=== PATIENT | female | born 1940 | race Caucasian/White ===

== ENCOUNTER 2017-02-13 16:11 | Inpatient (IN) | payer OTHER ==
[2017-02-13] MEDS ORDERED: ASPIRIN 81 MG CHEWABLE TAB PO ONE (17:13)
--- NOTE | 2017-02-13 17:20 | EDPHY ---
H & P Stated Complaint: sob x 5 days/denies cp but has extensive hx Source: Patient Exam Limitations: No limitations - Personal History Current Tetanus/Diphtheria Vaccine: Unsure - Medical/Surgical History Hx Asthma: No Hx Chronic Respiratory Disease: No Hx Diabetes: No Hx Cardiac Disease: Yes Hx Renal Disease: No Hx Cirrhosis: No Hx Alcoholism: No Hx HIV/AIDS: No Hx Splenectomy or Spleen Trauma: No Other PMH: 6 or more cardiac stents/hypertension, hyperlipidemia, hypothyroid - Family History Significant Family History: Heart disease - Social History Smoking Status: Never smoked Alcohol Use: Rarely Drug Use: None <Jessica Vieyra - Last Filed: 02/13/17 19:08> <Madyson Larry - Last Filed: 02/14/17 23:03> Time Seen by Provider: 02/13/17 16:50 HPI/ROS: HPI: 76-year-old female presents to emergency department with chief concern shortness of breath, left arm pain. 1st noted shortness of breath 3 days ago while walking up stairs while at the conference for [employer] at [facility]. Several days ago was walking on a treadmill and noted very mild in her left arm pain that resolved when she slow down. [place] short of breath at lunch today with her friends, and had to slow down while walking afterwards. No fever, chills, myalgias, URI symptoms, chest pain, abdominal pain, nausea, vomiting, diaphoresis. Has a history of CAD with 6 stents, last intervention approximately 4 years ago in [place]. She has never experienced chest pain with her blockages, only shortness of breath an inner left arm pain. Spent 2 days in her car 2 months ago while driving from [place] to [place]. [place] in [place] is Dr. Karlos Arredondo. Past medical history includes hyperlipidemia, hypertension, hypothyroid. Unknown family history for DVT, no personal history. No calf pain. Never smoker. No history of asthma. ROS:10 point review of systems is negative other than as stated in HPI (Jessica Vieyra) - Social History Additional Social History: (Jessica Vieyra) - Physical Exam Exam: Vital signs stable, reviewed by me General: Awake, alert, calm, cooperative. No acute distress. Head: Normalocephalic. Atraumatic. EENT: PERRLA. EOMI. No pallor or injection. Anicteric. No nystagmus. No injection. TMs intact bilaterally with normal landmarks. No rhinnorhea, nasal passages clear. Oropharynx without redness, exudates, or lesions. Tonsils 2+ bilaterally, no exudates. Neck: Supple, nontender. No lymphadenopathy. Full range of motion. No meningismus. No carotid bruit. Respiratory: Breathing unlabored. Breath sounds equal bilaterally and clear to auscultation. No adventitious sounds. CV: Chest nontender, atraumatic. Heart rate regular. No murmur, distal pulses 2+ bilaterally. Brisk cap refill all extremities. GI: Abdomen soft, nontender. Bowel sounds normoactive and positive x4 quadrants. No pulsatile mass. Neuro: Alert. Oriented x 3. Speech clear. Nonfocal cranial nerves throughout. Sensation intact all extremities. Skin: Skin warm, dry, intact. No rashes, abrasions, or lacerations. Skin turgor normal. Extremities: Full range of motion in all 4 extremities. Strength 5+ all extremities. (Jessica Vieyra) Constitutional: Initial Vital Signs Temperature (C) 36.4 C 02/13/17 16:25 Heart Rate 95 02/13/17 16:25 Respiratory Rate 18 02/13/17 16:25 Blood Pressure 176/80 H 02/13/17 16:25 O2 Sat (%) 96 02/13/17 16:25 O2 Delivery Mode Room Air Allergies/Adverse Reactions: No Known Allergies Allergy (Unverified 02/13/17 16:22) Home Medications: Medication Instructions Recorded Aspirin [Aspirin 81mg (*)] 81 mg PO HS 02/13/17 B12/Levomefolate Calcium/B-6 1 each PO DAILY 02/13/17 [Foltx Tablet] Clopidogrel Bisulfate [Plavix (*)] 75 mg PO DAILY 02/13/17 LORazepam [Ativan (*)] 1 mg PO HS PRN 02/13/17 Levothyroxine [Synthroid 100 mcg 100 mcg PO DAILY 02/13/17 (*)] Losartan Potassium [Cozaar] 100 mg PO HS 02/13/17 Meclizine HCl [Meclizine HCl 12.5 25 mg PO DAILY PRN 02/13/17 mg (*)] Niacin ER [Niaspan 1000 mg (*)] 2,000 mg PO HS 02/13/17 Nitroglycerin [Nitrostat 0.4 mg 0.4 mg SL AD PRN 02/13/17 (*)] Simvastatin [Zocor] 20 mg PO HS 02/13/17 Vit C/Dl-E AC/Lut/Copper/Znox 1 each PO BID 02/13/17 [Preservision Softgel] Medical Decision Making <Jessica Vieyra - Last Filed: 02/13/17 19:08> Consult/Admit Bed Type: Dr Leung Katey <Madyson Larry - Last Filed: 02/14/17 23:03> - Diagnostics Imaging Results: Imaging Impressions Myocardial Perfusion Scan Nuc Med 02/14/17 09:03 Impression: 1. Normal left ventricular ejection fraction of 80 %. 2. No focal wall motion abnormalities. 3. Small focal area of decreased uptake on stress imaging involving the distal septal wall near the left ventricular apex that could represent small focal area of ischemia. No additional abnormality seen. Dr. العراقي was paged in order to communicate these results as requested at 1224 hours. ED Course/Re-evaluation: 1715: 76-year-old female presents to ED with chief concern shortness of breath , transient left inner arm pain. She has a known cardiac history with 6 stents. Last intervention approximately 4 years ago. She has never had chest pain- her ischemic pain presents as shortness of breath and left inner arm pain. She has been short of breath intermittently x3 days. She experienced left inner arm discomfort when she was on a treadmill last week at home, which resolved when she slowed down. On arrival to ED vitals are stable. EKG, labs, chest x- ray all ordered and pending. Patient has no discomfort presently. She is given a 324 mg chewable aspirin. 1800: EKG shows a sinus rhythm, rate 66. No evidence of ischemia. Chest x- ray shows mild airway disease, minimal left basilar atelectasis. No evidence of pneumonia or effusion. Labs still pending. 1908: Troponin 0.08. D-dimer less than 0.27. Jessica Pearce MD of Cardiology consult. Awaiting hospitalist consult. Ordered 0.4 mg sublingual nitro now. Care of this patient transferred to my colleague Dr. Madyson Larry (Jessica Vieyra ) The patient wasevaluatedand managed by themallevel provider. Idiscussed the patient's presentation and course with thephysicianassistantor nurse practitionerand agree with theevaluation. My co-signature indicates that I have reviewed this chart and I agree with the findings and plan of care as documented. I am the secondary supervisingphysician. I discussed the patient presentation with Dr Federico Leung and he accepted admission to the hospital; PCU. Cardiology also aware. (Madyson Larry) Differential Diagnosis: Differential diagnosis includes but is not limited to CAD, URI, asthma, PE, spontaneous pneumothorax (Jessica Vieyra) - Data Points Laboratory Results: Laboratory Results 02/14/17 03:48 02/14/17 03:48 Medications Given: Discontinued Medications Aspirin (Aspirin) 324 mg PO EDNOW ONE Stop: 02/13/17 17:14 Last Admin: 02/13/17 17:31 Dose: 324 mg Aspirin Buffered (Aspirin Ec) 325 mg PO ONCALL ONE Stop: 02/14/17 14:21 Last Admin: 02/14/17 16:11 Dose: Not Given Clopidogrel Bisulfate (Plavix) 75 mg PO DAILY ALBERT Stop: 08/13/17 08:59 Last Admin: 02/14/17 09:42 Dose: 75 mg Diazepam (Valium) 5 mg PO ONCALL ONE Stop: 02/14/17 14:21 Last Admin: 02/14/17 16:11 Dose: Not Given Diphenhydramine HCl (Benadryl) 25 mg PO ONCALL ONE Stop: 02/14/17 14:21 Last Admin: 02/14/17 16:11 Dose: Not Given Famotidine (Pepcid) 20 mg PO ONCALL ONE Stop: 02/14/17 14:21 Last Admin: 02/14/17 16:11 Dose: Not Given Nitroglycerin (Nitrostat) 0.4 mg SL EDNOW ONE Stop: 02/13/17 19:06 Last Admin: 02/13/17 19:20 Dose: 0.4 mg Departure <Jessica Vieyra - Last Filed: 02/13/17 19:08> <Madyson Larry - Last Filed: 02/14/17 23:03> - Departure Disposition: [facility] Clinical Impression: Elevated troponin Dyspnea Qualifiers: Dyspnea type: unspecified Qualified Code(s): R06.00 - Dyspnea, unspecified Condition: Good
--- NOTE | 2017-02-13 17:26 | CPEKG ---
Heart Rate: 66 RR Interval: 909 P-R Interval: 168 QRSD Interval: 78 QT Interval: 416 QTC Interval: 436 P And[place]: 57 QRS Andover: 24 T Wave Andover: 57 EKG Severity - NORMAL ECG - EKG Impression: SINUS RHYTHM Electronically Signed By: Naila Bryant 13-Feb-2017 21:44:10
[2017-02-13 18:20] LABS: % IMMATURE GRANULYOCYTES 0.2 % (0.0-1.1); ABSOLUTE IMMATURE GRANULOCYTES 0.01 10^3/uL (0.00-0.10); ADD DIFF? NO; ADD MORPH? NO; ADD SCAN? NO; ATYPICAL LYMPHOCYTE FLAG 10 (0-99); FRAGMENT RBC FLAG 0 (0-99); HEMATOCRIT 40.4 % (38.0-47.0); HEMOGLOBIN 13.7 g/dL (12.6-16.3); LEFT SHIFT FLG 0 (0-99); LIPEMIA HEMOLYSIS FLAG 90 (0-99); MEAN CELL HEMOGLOBIN 32.2 pg (27.9-34.1); MEAN CELL HEMOGLOBIN CONCENTR. 33.9 g/dL (32.4-36.7); MEAN CELL VOLUME 95.1 fL (81.5-99.8); MEAN PLATELET VOLUME 10.8 fL (8.7-11.7); PLATELET CLUMPS FLAG 40 (0-99); PLATELET COUNT 183 10^3/uL (150-400); RED BLOOD CELL COUNT 4.25 10^6/uL (4.18-5.33); RED CELL DISTRIBUTION WIDTH 14.6 % (11.5-15.2)
[2017-02-13 18:35] LABS: ANION GAP 10 mEq/L (8-16); CALCIUM 9.8 mg/dL (8.5-10.4); CARBON DIOXIDE 21 mEq/l (22-31); CHLORIDE 103 mEq/L (97-110); CREATININE 0.8 mg/dL (0.6-1.0); GLOMERULAR FILTRATION RATE > 60; GLUCOSE 98 mg/dL (70-100); POTASSIUM 4.3 mEq/L (3.5-5.2); SODIUM 134 mEq/L (134-144)
[2017-02-13] MEDS ORDERED: NITROGLYCERIN 0.4 MG BTL SL ONE (19:05)
[2017-02-13] MEDS ORDERED: ONDANSETRON DISINTEGRATING 4 MG TAB PO PRN (19:55)
[2017-02-13] MEDS ORDERED: ONDANSETRON 4 MG/2 ML VIAL IVP PRN (19:55)
[2017-02-13] MEDS ORDERED: ACETAMINOPHEN 325 MG TAB PO PRN (19:55)
[2017-02-13] MEDS ORDERED: NITROGLYCERIN 0.4 MG BTL SL PRN (19:57)
[2017-02-13] MEDS ORDERED: MECLIZINE HCL 12.5 MG TAB PO PRN (21:55)
--- NOTE | 2017-02-13 22:00 | PDGENHP ---
History and Physical - Chief Complaint Acute shortness of breath - History of Present Illness PCP: Dr. Angella Ambrocio Primary advertising agency manager: Dr. Arredondo HPI: 76-year-old female presents with acute shortness of breath characterized as getting winded easily with associated pain located in her left arm, onset of symptoms approximately 1 and half weeks ago and duration intermittent thereafter. Patient reports that her shortness of breath and left arm pain symptoms are exacerbated by ambulation and exercise on a treadmill as well as ambulating upstairs. There alleviated with rest. She has otherwise been adherent to all of her home medications. She denies overt left-sided chest pain , but does note that she has never experienced chest pain as her anginal equivalent. Her anginal equivalent has always been shortness of breath and left arm pain. She otherwise denies any fevers chills lower extremity edema or cough. History Information - Allergies/Home Medication List Allergies/Adverse Reactions: No Known Allergies Allergy (Unverified 02/13/17 16:22) Home Medications: Aspirin [Aspirin 81mg (*)] 81 mg PO HS 02/13/17 [Last Taken 02/12/17] B12/Levomefolate Calcium/B-6 [Foltx Tablet] 1 each PO DAILY 02/13/17 [Last Taken 02/13/17] Clopidogrel Bisulfate [Plavix (*)] 75 mg PO DAILY 02/13/17 [Last Taken 02/13/17] LORazepam [Ativan (*)] 1 mg PO HS PRN 02/13/17 [Last Taken Unknown] Levothyroxine [Synthroid 100 mcg (*)] 100 mcg PO DAILY 02/13/17 [Last Taken ] Losartan Potassium [Cozaar] 100 mg PO HS 02/13/17 [Last Taken 02/12/17] Meclizine HCl [Meclizine HCl 12.5 mg (*)] 25 mg PO DAILY PRN 02/13/17 [Last Taken Unknown] Niacin ER [Niaspan 1000 mg (*)] 2,000 mg PO HS 02/13/17 [Last Taken 02/13/17] Nitroglycerin [Nitrostat 0.4 mg (*)] 0.4 mg SL AD PRN 02/13/17 [Last Taken 02/13] Simvastatin [Zocor] 20 mg PO HS 02/13/17 [Last Taken 02/12/17] Vit C/Dl-E AC/Lut/Copper/Znox [Preservision Softgel] 1 each PO BID 02/13/17 [ Last Taken 02/13/17] I have personally reviewed and updated: family history, medical history, social history, surgical history - Past Medical History coronary artery disease (With numerous stents placed in past, reportedly last normal stress test 1 year ago), hypertension, hyperlipidemia Additional medical history: Hypothyroidism. Labyrinthitis - Surgical History Reports: hysterectomy Additional surgical history: PCI numerous times - Family History Additional family history: No recent sick family contacts - Social History Smoking Status: Never smoked Alcohol Use: Rarely Drug Use: None Additional social history: Normally independent in her ADLs, splits time between [facility] in [facility] Review of Systems ROS: 10pt was reviewed & negative except for what was stated in HPI & below Respiratory: Reports: shortness of breath Muscolosketal: Reports: other (Left arm pain) Physical Exam Temp Pulse Resp BP Pulse Ox 36.6 C 72 18 158/73 H 96 02/13/17 20:10 02/13/17 20:10 02/13/17 20:10 02/13/17 20:10 02/13/17 20:10 Constitutional: no apparent distress, appears nourished, not in pain Eyes: PERRL, anicteric sclera, EOMI Ears, Nose, Mouth, Throat: moist mucous membranes, hearing normal, ears appear normal, no oral mucosal ulcers Cardiovascular: regular rate and rhythym, no murmur, rub, or gallop, No JVD, No edema Respiratory: no respiratory distress, no rales or rhonchi, clear to auscultation Gastrointestinal: normoactive bowel sounds, soft, non-tender abdomen, no palpable masses Musculoskeletal: other (Full range of motion left arm without any inducible pain , no tenderness to palpation over the left pectoralis muscle) Neurologic: AAOx3, sensation intact bilaterally, No weakness Psychiatric: interacting appropriately, not anxious, not encephalopathic, thought process linear Lab Data & Imaging Review 02/13/17 18:10 02/13/17 18:10 WBC 5.58 10^3/uL (3.80-9.50) 02/13/17 18:10 RBC 4.25 10^6/uL (4.18-5.33) 02/13/17 18:10 Hgb 13.7 g/dL (12.6-16.3) 02/13/17 18:10 Hct 40.4 % (38.0-47.0) 02/13/17 18:10 MCV 95.1 fL (81.5-99.8) 02/13/17 18:10 MCH 32.2 pg (27.9-34.1) 02/13/17 18:10 MCHC 33.9 g/dL (32.4-36.7) 02/13/17 18:10 RDW 14.6 % (11.5-15.2) 02/13/17 18:10 Plt Count 183 10^3/uL (150-400) 02/13/17 18:10 MPV 10.8 fL (8.7-11.7) 02/13/17 18:10 Neut % (Auto) 61.8 % (39.3-74.2) 02/13/17 18:10 Lymph % (Auto) 28.5 % (15.0-45.0) 02/13/17 18:10 [place] % (Auto) 7.7 % (4.5-13.0) 02/13/17 18:10 Eos % (Auto) 0.9 % (0.6-7.6) 02/13/17 18:10 Baso % (Auto) 0.9 % (0.3-1.7) 02/13/17 18:10 Nucleat RBC Rel Count 0.0 % (0.0-0.2) 02/13/17 18:10 Absolute Neuts (auto) 3.45 10^3/uL (1.70-6.50) 02/13/17 18:10 Absolute Lymphs (auto) 1.59 10^3/uL (1.00-3.00) 02/13/17 18:10 Absolute Monos (auto) 0.43 10^3/uL (0.30-0.80) 02/13/17 18:10 Absolute Eos (auto) 0.05 10^3/uL (0.03-0.40) 02/13/17 18:10 Absolute Basos (auto) 0.05 10^3/uL (0.02-0.10) 02/13/17 18:10 Absolute Nucleated RBC 0.00 10^3/uL (0-0.01) 02/13/17 18:10 Immature Gran % 0.2 % (0.0-1.1) 02/13/17 18:10 Immature Gran # 0.01 10^3/uL (0.00-0.10) 02/13/17 18:10 D-Dimer < 0.27 ug/mLFEU (0.00-0.50) 02/13/17 18:10 Sodium 134 mEq/L (134-144) 02/13/17 18:10 Potassium 4.3 mEq/L (3.5-5.2) 02/13/17 18:10 Chloride 103 mEq/L (97-110) 02/13/17 18:10 Carbon Dioxide 21 mEq/l (22-31) L 02/13/17 18:10 Anion Gap 10 mEq/L (8-16) 02/13/17 18:10 BUN 16 mg/dL (7-23) 02/13/17 18:10 Creatinine 0.8 mg/dL (0.6-1.0) 02/13/17 18:10 Estimated GFR > 60 02/13/17 18:10 Glucose 98 mg/dL (70-100) 02/13/17 18:10 Calcium 9.8 mg/dL (8.5-10.4) 02/13/17 18:10 Troponin I 0.080 ng/mL (0-0.034) H 02/13/17 18:10 Visualized and Interpreted Chest x-ray results: Yes Chest X-Ray results: normal (Left atelectasis, no focal airspace disease) Visualized and Interpreted EKG results: Yes EKG Interpretation: Positive for: other (Normal sinus rhythm no ST changes) Assessment & Plan Assessment: 76-year-old female presenting with acute shortness of breath in the setting of known coronary artery disease Plan: 1. Suspected stable angina. Patient reports that her shortness of breath and left arm discomfort are typical angina equivalents and she has previously received PCI for these exact symptoms -given the patient is experiencing them with exertion and not at rest, we will not treat her as unstable angina at this time. -discussed with Dr. Jessica Pearce, she has reported that she will see the patient in the morning and will most likely proceed with cardiac catheterization, keep NPO -repeat cardiac enzyme a.m., sooner if symptoms recur -monitor on telemetry -continue patient's home dosage of aspirin, statin, Plavix -given patient's marginally elevated troponin level, it is prudent to monitor her closely and observe overnight, proceeding with cardiac catheterization, rather than discharging home at this time 2. Hypertension. Continue ARB 3. Coronary artery disease. Chronic, continue home medications Diet. Cardiac diet, NPO after midnight Prophylaxis. Moderate risk patient, SCDs Code. Full Disposition. Anticipated discharge is 02/14/2017, pending further workup as outlined above.
[2017-02-13] MEDS: ATORVASTATIN CALCIUM 10 MG TAB PO SCH (22:34)
[2017-02-13] MEDS: NIACIN ER 1000 MG TAB.ER PO SCH (22:34)
[2017-02-13] MEDS: LOSARTAN POTASSIUM 50 MG TAB PO SCH (22:34)
[2017-02-13] MEDS: ASPIRIN 81 MG CHEWABLE TAB PO SCH (22:36)
[2017-02-14 04:07] LABS: % IMMATURE GRANULYOCYTES 0.2 % (0.0-1.1); ABSOLUTE IMMATURE GRANULOCYTES 0.01 10^3/uL (0.00-0.10); ADD DIFF? NO; ADD MORPH? NO; ADD SCAN? NO; ATYPICAL LYMPHOCYTE FLAG 10 (0-99); FRAGMENT RBC FLAG 0 (0-99); HEMATOCRIT 41.8 % (38.0-47.0); LEFT SHIFT FLG 0 (0-99); LIPEMIA HEMOLYSIS FLAG 80 (0-99); MEAN CELL HEMOGLOBIN 32.2 pg (27.9-34.1); MEAN CELL HEMOGLOBIN CONCENTR. 33.5 g/dL (32.4-36.7); MEAN CELL VOLUME 96.1 fL (81.5-99.8); MEAN PLATELET VOLUME 10.8 fL (8.7-11.7); PLATELET CLUMPS FLAG 0 (0-99); PLATELET COUNT 159 10^3/uL (150-400); RED BLOOD CELL COUNT 4.35 10^6/uL (4.18-5.33); RED CELL DISTRIBUTION WIDTH 14.6 % (11.5-15.2)
[2017-02-14 04:33] LABS: ALANINE AMINOTRANSFERASE 31 IU/L (9-52); ALBUMIN 3.9 g/dL (3.5-5.0); ALKALINE PHOSPHATASE 65 IU/L (38-126); ANION GAP 8 mEq/L (8-16); ASPARTATE AMINOTRANSFERASE 31 IU/L (14-46); BILIRUBIN,TOTAL 1.3 mg/dL (0.1-1.4); CALCIUM 9.7 mg/dL (8.5-10.4); CARBON DIOXIDE 22 mEq/l (22-31); CHLORIDE 110 mEq/L (97-110); CREATININE 0.7 mg/dL (0.6-1.0); GLOMERULAR FILTRATION RATE > 60; GLUCOSE 80 mg/dL (70-100); MAGNESIUM 2.5 mg/dL (1.6-2.3); POTASSIUM 4.4 mEq/L (3.5-5.2); SODIUM 140 mEq/L (134-144); TOTAL PROTEIN 6.7 g/dL (6.3-8.2)
[2017-02-14 04:39] LABS: TROPONIN I 0.048 ng/mL (0-0.034)
[2017-02-14] MEDS: LEVOTHYROXINE 100 MCG TAB PO SCH (05:58)
[2017-02-14] MEDS ORDERED: CLOPIDOGREL BISULFATE 75 MG TAB PO SCH (09:00)
[2017-02-14] MEDS: LEVOMEFOLATE CALCIUM PO SCH (09:43)
[2017-02-14] MEDS: PRESERVISION AREDS2 FORMULA EYE VIT 1 EACH PO SCH ×2 (09:43→21:02)
[2017-02-14] MEDS: B6 PO SCH (09:43)
[2017-02-14] MEDS: B12 PO SCH (09:43)
--- NOTE | 2017-02-14 10:10 | GCON ---
[f rep st] CONSULTATION HISTORY OF PRESENT ILLNESS: Patient is admitted with shortness of breath. The patient has been gaining weight. She has not been exercising. She has been not exercising for 3 or 4 months. She noted 10 days ago, when she was walking at the [employer], her friend said she was breathing hard and was short of breath. Monday she went out to lunch, and she walked 3 blocks, and when she was coming back, she was walking slower and slower. She has a long history of coronary artery disease, and it is always heralded with angina which is left arm discomfort in the elbow area on the left side. She was taken care of in the past by Ulices Ricketts and Dr. Arredondo. She has received stenting in [place] and [place]. Several weeks ago on a treadmill, she had a little bit of discomfort in the left arm. She slowed down, and it went right away. She has had no further symptoms. She has had stress tests in the past when she has had arm discomfort , and the stress tests have been negative. She does not have orthopnea, PND, dyspnea on exertion. She does not have pleuritic chest pain. She has no hot swollen joints, major rashes. She has had no fever, chills, or cough. No sputum production. She has no asthma. She does have allergies, and she takes Zyrtec p.r.n. She is not having symptoms. She does not have lower extremity edema or tenderness. She has been taking her medications and feeling reasonably well. She is not sure why she has not been exercising the last 3-4 months, but she says she has been just not. She does not enjoy it, and she has not been doing much of it. She has done cardiac rehab in the past with Dr. Ricketts. She has a history of coronary disease with 6 stents. The 1st one when she was 61 years old. At that time, she had a 98% blockage in an artery. She has never had a myocardial infarction. Her last stent was 5 years ago in [place], [place], where they put a stent inside a previous stent that had narrowed up. CARDIAC RISK FACTORS: Her cardiac risk factors are positive for being overweight, for hypertension, for hyperlipidemia, and for known coronary disease. Cardiac risk factors are negative for diabetes, hyperuricemia, smoking history, family history of premature coronary disease. ALLERGIES: None for medications. MEDICATIONS: 1. Aspirin. 2. B12. 3. Plavix. 4. Ativan. 5. Synthroid. 6. Cozaar. 7. Meclizine. 8. Niaspan. 9. Nitrostat. 10. Zocor. 11. PreserVision soft gel. REVIEW OF SYSTEMS: Review of 10 points is negative except as noted above. Her review of systems includes hypothyroidism. She has a history of labyrinthitis. SURGICAL HISTORY: Status post hysterectomy. FAMILY HISTORY: She has no family history of premature coronary disease. No history of unexplained sudden at a young age. SOCIAL HISTORY: She was born in [place], [place]. This is in [facility]. She moved around quite a bit including [place], but by 3rd grade settled in [facility]. She has 1 daughter who is healthy, lives in [facility]. She herself spends 6 months a year in [place]. Her partner is golfer and retired. He was a financial planning consultant. 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 She has not been exercising. In the past she has use treadmills and done cardiac rehab multiple times. She does not smoke. She does not drink significant amounts of alcohol. PHYSICAL EXAMINATION: VITAL SIGNS: Her blood pressure is 121/64. Heart rate is 65. Respiratory rate is 12. Afebrile. GENERAL: She is comfortable in hospital bed. HEENT: Pupils equal, reactive. Mucous membranes of the mouth are moist. NECK: Supple. CARDIOVASCULAR: S1, S2. Soft systolic murmur, left sternal border. No diastolic murmur. No S3, S4. No rubs. PULMONARY: Rhonchi. No rales, wheezing, or dullness. ABDOMEN: Soft, nontender, without masses. EXTREMITIES: No edema, inflammation, or ulceration. SKIN: Age- related changes. PSYCH: No obvious anxiety or depression. NEUROLOGIC: 2-12 grossly normal. Motor and sensory seem to be intact. LYMPH NODES: No obvious lymphadenopathy. STUDIES AND LABORATORY DATA: EKGs are normal. Troponins are indeterminate. Sodium 134, potassium 4.2, chloride 103, CO2 21, BUN 16, creatinine 0.8. White count 5.5, hematocrit 40.4, platelets 183. Chest x-ray showed clear lungs except mild airways disease and minimal left basilar atelectasis. ASSESSMENT AND PLAN: 1. Coronary artery disease. 2. Shortness of breath. 3. Hyperlipidemia. 4. Hypertension. 5. Weight gain. The patient is feeling fine today. She has not had her classic anginal symptom any time in the last 3-4 weeks. She was not sure she even had it then, but before that, she has not had it for quite a while. She is active but not exercising very much. She has been gaining weight. She has had some shortness of breath. This may well be just from deconditioning. In the past, when she has had her anginal pain, she has had multiple stress tests that were negative. At this point in time, with troponins that are not positive, EKG showing no changes, and unrelated symptoms, I think that a nuclear stress test would be the best option. I offered her coronary angiography as she has a good understanding of her disease, and she would like to start with a stress test at this point. I think is certainly the best approach for her. If she deteriorates in any way, we can change our plan. In terms of the differential diagnosis of her shortness of breath, there is nothing to suggest pulmonary embolic disease. She did say her allergies have been bothering her, and she has been taking some allergy medication that may have contributed to her shortness of breath. Other factors could be that she has gained a fair amount of weight, and she has not been exercising at all. I find nothing to suggest significant infectious process in the lungs causing this current shortness of breath complaint. We will follow her very closely, and then over time, she will follow with Dr. Ambrocio and Dr. Arredondo who are the physicians who know her well. All her questions have been answered. I have arranged for the stress test to start. /[id number]/MODL MTDD
[2017-02-14] MEDS ORDERED: REGADENOSON 0.4 MG/5 ML SYR IVP ONE (10:56)
--- NOTE | 2017-02-14 11:41 | CPIP ---
[f rep st] INVASIVE CARDIAC PROCEDURE PROCEDURE PERFORMED: Nuclear stress test. INDICATION: The patient had shortness of breath and a history of coronary disease. The patient gave informed consent. PROCEDURE IN DETAIL: The patient went on the Tanner protocol for 5 minutes and 11 seconds, and at th at point in time the grade was taken away because she felt quite short of breath. Her baseline EKG shows premature ventricular contractions, tall R-waves in 2, 3 and AVF, nonspecific ST-T changes. W ith exercise, she had nondiagnostic ST-T changes. She reached 95% of maximum predicted heart rate. She had no chest pain. She has a history of angina and her angina is pain in the left elbow region and in the left arm with exertion. She had none of those symptoms during this stress test. The test was stopped at 6 minutes and 11 seconds, and she went into recovery. CONCLUSION: 1. Negative exercise tolerance test for electrocardiogram or clinical evidence of ischemia at a max imum work load. 2. No ventricular ectopy with exercise. 3. The patient had 1 premature ventricular complex prior to exercise. 4. No arm, jaw or chest pain with exercise. 5. Nuclear images pending. 6. All her questions have been answered. /[id number]/MODL
--- NOTE | 2017-02-14 14:19 | HOSPPROG ---
Hospitalist Progress Note Assessment/Plan: # acute anginal equivalent- pt presenting with shortness of breath and left arm discomfort- patient ruled out overnight with normal telemetry monitoring telemetry( personally reviewed and interpreted) sinus in the 60s to 80s - plan for a nuclear stress testing today and potential catheterization pending results - keep patient NPO - cardiology consulting # coronary artery disease- as above patient high risk - await ischemic evaluation today- oxygen saturations 93% on room air - continue aspirin, Plavix, statin and losartan # hypertension- controlled continue losartan # hyperlipidemia- continue statin # prophylaxis holding for possible catheterization # diet NPO # disposition- I expect greater than 2 midnights as patient is requiring ischemia evaluation I have discussed the case with Cardiology we will await stress test results for planning regarding catheterization Subjective: denies any chest pain ever Objective: Vital Signs Temp Pulse Resp BP Pulse Ox 36.2 C 84 16 146/88 H 93 02/14/17 12:00 02/14/17 12:00 02/14/17 12:00 02/14/17 12:00 02/14/17 12:00 Laboratory Results 02/14/17 03:48 02/14/17 03:48 02/13/17 02/14/17 02/15/17 05:59 05:59 05:59 Intake Total 300 Balance 300 - Physical Exam Constitutional: appears nourished Eyes: anicteric sclera Ears, Nose, Mouth, Throat: moist mucous membranes Cardiovascular: regular rate and rhythym Respiratory: no respiratory distress, no rales or rhonchi Gastrointestinal: normoactive bowel sounds, soft, non-tender abdomen Genitourinary: no bladder fullness Skin: warm, normal color Musculoskeletal: No asymmetric calves Neurologic: AAOx3 Psychiatric: interacting appropriately, not anxious Lymph, Heme, Immunologic: no cervical LAD ICD10 Worksheet Patient Problems: Problems Problem Status Onset Dyspnea Acute Elevated troponin Acute
[2017-02-14] MEDS ORDERED: DIAZEPAM 5 MG TAB PO ONE (14:20)
[2017-02-14] MEDS ORDERED: diphenhydrAMINE 25 MG CAP PO ONE ×2 (14:20→14:25)
[2017-02-14] MEDS ORDERED: FAMOTIDINE 20 MG TAB PO ONE (14:20)
[2017-02-14] MEDS ORDERED: ASPIRIN EC 325 MG TAB PO ONE ×2 (14:20→14:25)
[2017-02-14] MEDS ORDERED: DIAZEPAM 5 MG TAB ONE (14:25)
[2017-02-14] MEDS ORDERED: FAMOTIDINE 20 MG TAB ONE (14:25)
[2017-02-14] MEDS ORDERED: MIDAZOLAM 2 MG/2 ML VIAL ONE ×3 (14:51→15:52)
[2017-02-14] MEDS ORDERED: IOPAMIDOL (ISOVUE-370) 150 ML BTL IV ONE ×2 (14:51→15:42)
[2017-02-14] MEDS ORDERED: LIDOCAINE 1% 30 ML SDV ONE (14:51)
[2017-02-14] MEDS ORDERED: fentaNYL 100 MCG/2 ML INJ ONE ×2 (14:51→15:58)
[2017-02-14] MEDS ORDERED: NITROGLYCERIN 1,500 MCG/15 ML VIAL MISC ONE (15:42)
[2017-02-14] MEDS ORDERED: ATROPINE SULFATE 1 MG/10 ML SYR IVP PRN (16:16)
[2017-02-14] MEDS ORDERED: HYDROCODONE/APAP 5/325 TAB PO PRN (16:16)
[2017-02-14] MEDS ORDERED: ONDANSETRON 4 MG/2 ML VIAL IVP PRN (16:16)
[2017-02-14] MEDS ORDERED: NITROGLYCERIN 0.4 MG BTL SL PRN (16:16)
[2017-02-14] MEDS ORDERED: OXYCODONE/APAP 5/325 TAB PO PRN (16:16)
--- NOTE | 2017-02-14 16:31 | CPIP ---
[f rep st] INVASIVE CARDIAC PROCEDURE PROCEDURES PERFORMED: 1. Left heart catheterization. 2. Left ventriculogram. 3. Right and left coronary arteriogram. INDICATIONS: The patient has had shortness of breath. She has a long history, 15 years, of stenting in her left anterior descending artery. She has had over 6 occasions when she has received stents. She now comes in with increased shortness of breath. She has indeterminate troponins. She has an abnormal nuclear stress test. ANGIOGRAPHY: 1. Left main coronary artery normal. 2. LAD has multiple stents in the proximal through mid segment, and multiple stents with stents inside of other stents. She has significant in-stent restenosis involving the proximal LAD at the takeoff of a large first diagonal branch with 95% stenosis of that diagonal branch. Just distal to the stent, she has a new 90% stenosis in the mid LAD. 3. Her circumflex has intimal disease present and has a 75% stenosis prior to the bifurcation of a large first obtuse marginal branch. The circumflex is a large distal vessel. 4. Right coronary artery is dominant and has intimal disease only. LEFT HEART CATHETERIZATION: 1. Left ventricular end-diastolic pressure 15 mmHg. 2. No aortic stenosis. LEFT VENTRICULOGRAM: 1. Normal left ventricular systolic function. 2. Normal left ventricular chamber dimension. 3. No regional wall motion abnormalities. 4. No significant mitral regurgitation. CONCLUSION: The patient has severe coronary artery disease with in-stent restenosis on good medical therapy. She also has advancing disease involving the circumflex coronary artery. RECOMMENDATION: Consultation with the surgical service for complete revascularization, hopefully to the diagonal branch, the LAD, the OM, and distal circumflex. Should the patient refuse surgery, she can be brought back for percutaneous intervention. COMPLICATIONS: None. BLOOD LOSS: 10 cc. /[id number]/MODL MTDD
[2017-02-14] MEDS ORDERED: HEPARIN/DEXTROSE 500 ML IV SCH (17:30)
[2017-02-14 18:52] LABS: HEMATOCRIT 39.4 % (38.0-47.0)
[2017-02-14] MEDS: LOSARTAN POTASSIUM 50 MG TAB PO SCH (21:01)
[2017-02-14] MEDS: ASPIRIN 81 MG CHEWABLE TAB PO SCH (21:01)
[2017-02-14] MEDS: NIACIN ER 1000 MG TAB.ER PO SCH (21:02)
[2017-02-14] MEDS: ATORVASTATIN CALCIUM 10 MG TAB PO SCH (21:03)
[2017-02-15] MEDS ORDERED: HEPARIN 10,000 UNIT/10 ML MDV IVP ONE (01:00)
[2017-02-15] MEDS ORDERED: HEPARIN 10,000 UNIT/10 ML MDV IVP PRN (01:00)
[2017-02-15] MEDS: HEPARIN/DEXTROSE 500 ML IV SCH ×2 (01:02→20:09)
[2017-02-15] MEDS: LEVOTHYROXINE 100 MCG TAB PO SCH (05:09)
[2017-02-15 05:22] LABS: ANION GAP 8 mEq/L (8-16); CALCIUM 9.2 mg/dL (8.5-10.4); CARBON DIOXIDE 24 mEq/l (22-31); CHLORIDE 108 mEq/L (97-110); CREATININE 0.7 mg/dL (0.6-1.0); GLOMERULAR FILTRATION RATE > 60; GLUCOSE 80 mg/dL (70-100); POTASSIUM 4.4 mEq/L (3.5-5.2); SODIUM 140 mEq/L (134-144)
[2017-02-15] MEDS: PRESERVISION AREDS2 FORMULA EYE VIT 1 EACH PO SCH ×2 (08:39→17:52)
[2017-02-15] MEDS: B12 PO SCH (08:39)
[2017-02-15] MEDS: LEVOMEFOLATE CALCIUM PO SCH (08:39)
[2017-02-15] MEDS: B6 PO SCH (08:39)
--- NOTE | 2017-02-15 11:41 | HOSPPROG ---
Hospitalist Progress Note Assessment/Plan: # Multivessel CAD - pt with multiple vessels >75% stenosis - CT surgery consulted from [facility] for CABG Myocardial perfusion scan with septal defect - Cath confirming multivessel disease not amenable to PCI TELE (personally reviewed and interpreted) sinus 60-80's- oxygen saturations 94% - holding plavix - heparin gtt - CT surgery to consult for CABG end of this week - cont ASA, statin # hypothyroid - TSH 0.7 - continue synthroid # hypertension- controlled continue losartan # hyperlipidemia- continue statin # prophylaxis - heparin gtt # diet - cardiac # disposition- I expect greater than 2 midnights as patient is requiring evaluation for CABG I have discussed the case with Cardiology we will await stress test results for planning regarding catheterization Subjective: denies cp Objective: Vital Signs Temp Pulse Resp BP Pulse Ox 36.6 C 83 20 146/76 H 94 02/15/17 07:40 02/15/17 07:40 02/15/17 07:40 02/15/17 07:40 02/15/17 07:40 Laboratory Results 02/14/17 18:41 02/15/17 04:18 02/14/17 02/15/17 02/16/17 05:59 05:59 05:59 Intake Total 450 Balance 450 - Physical Exam Constitutional: appears nourished Eyes: anicteric sclera Ears, Nose, Mouth, Throat: moist mucous membranes Cardiovascular: regular rate and rhythym Respiratory: no respiratory distress, no rales or rhonchi Gastrointestinal: normoactive bowel sounds, soft, non-tender abdomen Genitourinary: no bladder fullness Skin: warm, normal color Musculoskeletal: No asymmetric calves Neurologic: AAOx3 Psychiatric: interacting appropriately, not anxious Lymph, Heme, Immunologic: no cervical LAD ICD10 Worksheet Patient Problems: Problems Problem Status Onset Dyspnea Acute Elevated troponin Acute
--- NOTE | 2017-02-15 13:11 | SOAPPROG ---
SHELLY Progress Note Assessment/Plan: Assessment: 1. Coronary artery disease 2. Dyslipidemia 3. deconditioning 4. obesity She has normal LV systolic function. She has never had a known myocardial infarction. She has not had heart failure. She is not unstable today. She has significant coronary artery disease and I would recommend coronary bypass grafting with grafts to a diagonal branch large obtuse marginal branch perhaps the distal circumflex maybe a jump graft as well as left anterior descending artery. Think she would do very well with that and she has agreed to try complete revascularization. I have spent a great deal of time talking to she and her about options about operators about medicine and non interventional therapy about interventional therapy about surgical approach. As of now she is going to go with surgery. We have reviewed prevention extensively. I have talked to the surgeon to multiple times yesterday and today as well. All her questions have been answered. To help get her off Plavix at the surgeon's request we have her stopped taking Plavix and she is taking IV heparin up until the time of surgery. Plan: 02/15/17 13:13 Subjective: She has no chest pain She does not have shortness of breath She has no pain in her right groin. She has had no complications from her angiogram. She has no nausea vomiting or diarrhea She is not having fevers or chills She does not have headache stiff neck sore throat She is no lightheadedness or dizziness. She has no shortness of breath. She has no orthopnea PND.peripheral edema. Objective: Vital Signs Temp Pulse Resp BP Pulse Ox 36.7 C 72 18 173/85 H 94 02/15/17 11:54 02/15/17 11:54 02/15/17 11:54 02/15/17 11:54 02/15/17 11:54 Laboratory Results 02/14/17 18:41 02/15/17 04:18 02/14/17 02/15/17 02/16/17 05:59 05:59 05:59 Intake Total 450 Balance 450 Physical Exam - Physical Exam General Appearance: alert, no apparent distress Respiratory: chest non-tender, lungs clear, No wheezing Cardiac/Chest: regular rate, rhythm, systolic murmur, No edema, No bradycardia, No tachycardia Abdomen: non-tender, soft, No organomegaly Skin: normal color, No pallor Extremities: non-tender, No pedal edema, No calf tenderness Neuro/Psych: alert, normal mood/affect, oriented x 3 ICD10 Worksheet Patient Problems: Problems Problem Status Onset Dyspnea Acute Elevated troponin Acute
--- NOTE | 2017-02-15 13:25 | SOAPPROG ---
SHELLY Progress Note Assessment/Plan: Assessment: 1. Coronary artery disease 2. Dyslipidemia 3. Obesity 4. Shortness of breath 5. Deconditioning she has severe coronary artery disease. She has significant restenosis inside multiple stents. She has had restenoses already and had stents put inside other stents. She does not have heart failure. She does not have on any significant arrhythmias She is not having any new complications of her coronary disease. We have talked about surgery. We have talked about medical therapy I have talked about percutaneous intervention. She understands all the options. I have talked to the surgeon several times yesterday and several times today. She will be lined up for surgery presumably on Monday. At their request we have Plavix and we will put her on IV heparin until surgery. We have reviewed prevention extensively. All her questions have been answered. I have discussed this with her as well. Plan: 02/15/17 13:22 Subjective: She has no chest pain. She has no shortness of breath. She has done very well from a coronary angiogram. She has no groin pain. She has no fever chills or cough. She is not having any other issues right now. She has no edema. She has no orthopnea PND dyspnea exertion. She has no jaw pain. She has not had any bleeding. She is not lightheaded or dizzy She has no palpitations she is currently on IV heparin. Objective: Vital Signs Temp Pulse Resp BP Pulse Ox 36.7 C 72 18 173/85 H 94 02/15/17 11:54 02/15/17 11:54 02/15/17 11:54 02/15/17 11:54 02/15/17 11:54 Laboratory Results 02/14/17 18:41 02/15/17 04:18 02/14/17 02/15/17 02/16/17 05:59 05:59 05:59 Intake Total 450 Balance 450 Physical Exam - Physical Exam General Appearance: alert, no apparent distress Neck: supple Cardiac/Chest: regular rate, rhythm, systolic murmur, No edema Abdomen: normal bowel sounds, non-tender, soft, No organomegaly Skin: normal color, warm/dry Extremities: non-tender, No pedal edema, No calf tenderness Neuro/Psych: no motor/sensory deficits, alert, normal mood/affect ICD10 Worksheet Patient Problems: Problems Problem Status Onset Dyspnea Acute Elevated troponin Acute
[2017-02-15] MEDS: LOSARTAN POTASSIUM 50 MG TAB PO SCH (19:59)
[2017-02-15] MEDS: NIACIN ER 1000 MG TAB.ER PO SCH (20:00)
[2017-02-15] MEDS: ASPIRIN 81 MG CHEWABLE TAB PO SCH (20:00)
[2017-02-15] MEDS: ATORVASTATIN CALCIUM 10 MG TAB PO SCH (20:00)
[2017-02-15] MEDS: LORazepam 1 MG TAB PO PRN (23:59)
[2017-02-16 05:39] LABS: CALCIUM 9.2 mg/dL (8.5-10.4); CARBON DIOXIDE 23 mEq/l (22-31); CHLORIDE 107 mEq/L (97-110); CREATININE 0.7 mg/dL (0.6-1.0); GLOMERULAR FILTRATION RATE > 60; GLUCOSE 95 mg/dL (70-100); SODIUM 138 mEq/L (134-144)
[2017-02-16] MEDS: LEVOTHYROXINE 100 MCG TAB PO SCH (05:39)
[2017-02-16 06:26] LABS: ANION GAP 8 mEq/L (8-16); POTASSIUM 3.8 mEq/L (3.5-5.2)
[2017-02-16] MEDS: LEVOMEFOLATE CALCIUM PO SCH (08:57)
[2017-02-16] MEDS: B6 PO SCH (08:57)
[2017-02-16] MEDS: B12 PO SCH (08:57)
[2017-02-16] MEDS: PRESERVISION AREDS2 FORMULA EYE VIT 1 EACH PO SCH ×2 (09:42→17:52)
[2017-02-16 10:12] LABS: HEMOGLOBIN A1C 5.7 % (4.0-6.0)
--- NOTE | 2017-02-16 14:19 | PDGENHP ---
History and Physical - Chief Complaint symptomatic CAD - History of Present Illness 76 yo female with multiple layered stents in her LAD system evaluated for a 1 wk hx of exertional breathlessness with intermittent left arm heaviness and found to have severe instent restenosis of the proximal LAD as well as new obstructive disease in the mid LAD, principal Dx and proximal LCX. No assoc LVSD , LVDD, valvular dysfx, CHF, arrhythmias or prohibitive neurologic risk. Referred for CABG. Plavix washout initiated on heparin bridge and tentatively scheduled for surgery at 1pm on 02/17. [facility] covering for Dr Flowers while he is out of town and Dr Aj Kaplan to perform procedure. No interim CP or SOB. History Information - Allergies/Home Medication List Allergies/Adverse Reactions: No Known Allergies Allergy (Unverified 02/13/17 16:22) Home Medications: Aspirin [Aspirin 81mg (*)] 81 mg PO HS 02/13/17 [Last Taken 02/12/17] B12/Levomefolate Calcium/B-6 [Foltx Tablet] 1 each PO DAILY 02/13/17 [Last Taken 02/13/17] Clopidogrel Bisulfate [Plavix (*)] 75 mg PO DAILY 02/13/17 [Last Taken 02/13/17] LORazepam [Ativan (*)] 1 mg PO HS PRN 02/13/17 [Last Taken Unknown] Levothyroxine [Synthroid 100 mcg (*)] 100 mcg PO DAILY 02/13/17 [Last Taken ] Losartan Potassium [Cozaar] 100 mg PO HS 02/13/17 [Last Taken 02/12/17] Meclizine HCl [Meclizine HCl 12.5 mg (*)] 25 mg PO DAILY PRN 02/13/17 [Last Taken Unknown] Niacin ER [Niaspan 1000 mg (*)] 2,000 mg PO HS 02/13/17 [Last Taken 02/13/17] Nitroglycerin [Nitrostat 0.4 mg (*)] 0.4 mg SL AD PRN 02/13/17 [Last Taken 02/13] Simvastatin [Zocor] 20 mg PO HS 02/13/17 [Last Taken 02/12/17] Vit C/Dl-E AC/Lut/Copper/Znox [Preservision Softgel] 1 each PO BID 02/13/17 [ Last Taken 02/13/17] I have personally reviewed and updated: medical history, social history, surgical history - Past Medical History coronary artery disease (With 6 stents placed between the ages of 61 and 72, and a normal stress test 1 year ago; maintained on DAPT), hypertension, hyperlipidemia Additional medical history: Hypothyroidism. Labyrinthitis. Obesity - Surgical History Reports: hysterectomy Additional surgical history: PCI numerous times - Family History Additional family history: No recent sick family contacts - Social History Smoking Status: Never smoked Alcohol Use: Rarely Drug Use: None Additional social history: Normally independent in her ADLs, splits time between [facility] in [facility] ([place], [place]) Review of Systems ROS: 10pt was reviewed & negative except for what was stated in HPI & below Physical Exam Temp Pulse Resp BP Pulse Ox 36.8 C 82 18 133/82 H 96 02/16/17 12:00 02/16/17 12:00 02/16/17 12:00 02/16/17 12:00 02/16/17 12:00 Constitutional: no apparent distress, appears nourished Eyes: anicteric sclera, other (PER) Ears, Nose, Mouth, Throat: moist mucous membranes, other (no visible dental disrepair) Cardiovascular: regular rate and rhythym, pulses symmetric bilaterally, other ( LEs no edema, no visible varicosities, GSV caliber somewhat small at the ankle) Peripheral Pulses: 2+: dorsalis-pedis (R), dorsalis-pedis (L) Respiratory: clear to auscultation Gastrointestinal: normoactive bowel sounds, soft, non-tender abdomen Skin: warm, abrasion (scratch garcia LUE) Musculoskeletal: other (grossly symmetric) Lab Data & Imaging Review 02/16/17 11:03 02/16/17 04:12 WBC 6.31 10^3/uL (3.80-9.50) 02/14/17 03:48 RBC 4.35 10^6/uL (4.18-5.33) 02/14/17 03:48 Hgb 14.0 g/dL (12.6-16.3) 02/14/17 03:48 Hct 39.4 % (38.0-47.0) 02/14/17 18:41 MCV 96.1 fL (81.5-99.8) 02/14/17 03:48 MCH 32.2 pg (27.9-34.1) 02/14/17 03:48 MCHC 33.5 g/dL (32.4-36.7) 02/14/17 03:48 RDW 14.6 % (11.5-15.2) 02/14/17 03:48 Plt Count 159 10^3/uL (150-400) 02/16/17 11:03 MPV 10.8 fL (8.7-11.7) 02/14/17 03:48 Neut % (Auto) 57.5 % (39.3-74.2) 02/14/17 03:48 Lymph % (Auto) 30.7 % (15.0-45.0) 02/14/17 03:48 George % (Auto) 8.4 % (4.5-13.0) 02/14/17 03:48 Eos % (Auto) 1.9 % (0.6-7.6) 02/14/17 03:48 Baso % (Auto) 1.3 % (0.3-1.7) 02/14/17 03:48 Nucleat RBC Rel Count 0.0 % (0.0-0.2) 02/14/17 03:48 Absolute Neuts (auto) 3.63 10^3/uL (1.70-6.50) 02/14/17 03:48 Absolute Lymphs (auto) 1.94 10^3/uL (1.00-3.00) 02/14/17 03:48 Absolute Monos (auto) 0.53 10^3/uL (0.30-0.80) 02/14/17 03:48 Absolute Eos (auto) 0.12 10^3/uL (0.03-0.40) 02/14/17 03:48 Absolute Basos (auto) 0.08 10^3/uL (0.02-0.10) 02/14/17 03:48 Absolute Nucleated RBC 0.00 10^3/uL (0-0.01) 02/14/17 03:48 Immature Gran % 0.2 % (0.0-1.1) 02/14/17 03:48 Immature Gran # 0.01 10^3/uL (0.00-0.10) 02/14/17 03:48 ESR 9 MM/HR (0-30) 02/14/17 18:41 D-Dimer < 0.27 ug/mLFEU (0.00-0.50) 02/13/17 18:10 Heparin Anti-Xa, Unfract 0.67 IU/mL (0.32-0.67) 02/16/17 11:03 Sodium 138 mEq/L (134-144) 02/16/17 04:12 Potassium 3.8 mEq/L (3.5-5.2) 02/16/17 04:12 Chloride 107 mEq/L (97-110) 02/16/17 04:12 Carbon Dioxide 23 mEq/l (22-31) 02/16/17 04:12 Anion Gap 8 mEq/L (8-16) 02/16/17 04:12 BUN 14 mg/dL (7-23) 02/16/17 04:12 Creatinine 0.7 mg/dL (0.6-1.0) 02/16/17 04:12 Estimated GFR > 60 02/16/17 04:12 Glucose 95 mg/dL (70-100) 02/16/17 04:12 Hemoglobin A1c 5.7 % (4.0-6.0) 02/16/17 04:12 Estim Average Glucose 117 mg/dL (68-126) 02/16/17 04:12 Calcium 9.2 mg/dL (8.5-10.4) 02/16/17 04:12 Magnesium 2.5 mg/dL (1.6-2.3) H 02/14/17 03:48 Total Bilirubin 1.3 mg/dL (0.1-1.4) 02/14/17 03:48 AST 31 IU/L (14-46) 02/14/17 03:48 ALT 31 IU/L (9-52) 02/14/17 03:48 Alkaline Phosphatase 65 IU/L (38-126) 02/14/17 03:48 Troponin I 0.048 ng/mL (0-0.034) H 02/14/17 03:48 Total Protein 6.7 g/dL (6.3-8.2) 02/14/17 03:48 Albumin 3.9 g/dL (3.5-5.0) 02/14/17 03:48 TSH 0.710 uIU/mL (0.465-4.680) 02/15/17 04:18 LISA Screen 0.42 UNITS (<=1.00) 02/14/17 18:41 Patient ABO/Rh A POSITIVE 02/16/17 04:12 Antibody Screen NEGATIVE 02/16/17 04:12 Imaging Review: Nuclear stress test: ETT neg for ischemia or ectopy. MPI w LV apical perfusion defect, LVEF 80%. Carotid US: minimal calcific plaquing, no hemodynamically significant stenosis, antegrade vertebral flow bilaterally. Visualized and Interpreted Chest x-ray results: Yes Chest X-Ray results: no infiltrate, normal heart size Visualized and Interpreted EKG results: Yes EKG Interpretation: Positive for: normal sinsus rhythm (60s) Assessment & Plan Assessment: Atypical exertional angina Progressive CAD with recurrent instent restenosis of LAD Preserved LV systolic fx HTN Dylipidemia Obesity Plan: NPO p MN. CABG x 3 tomorrow, sooner if becomes unstable. Cont heparin gtt until fashion illustrator to OR. Surgery and consents per Dr Kaplan.
--- NOTE | 2017-02-16 16:07 | HOSPPROG ---
Hospitalist Progress Note Assessment/Plan: * Multi-vessel CAD -to CABG in am -IV heparin pending surgery * HTN -losartan * Hyperlipidemia -statin Hospitalist medicine to sign off in anticipation of OR tomorrow. Please reconsult if our services are needed. Subjective: No complaints. Objective: Vital Signs Temp Pulse Resp BP Pulse Ox 36.8 C 82 18 133/82 H 96 02/16/17 12:00 02/16/17 12:00 02/16/17 12:00 02/16/17 12:00 02/16/17 12:00 Laboratory Results 02/16/17 11:03 02/16/17 04:12 02/15/17 02/16/17 02/17/17 05:59 05:59 05:59 Intake Total 450 1520 Balance 450 1520 - Physical Exam Constitutional: no apparent distress, appears nourished, not in pain Respiratory: no respiratory distress Skin: no rashes or abrasions, no fluctuance, no induration Neurologic: AAOx3, sensation intact bilaterally Psychiatric: interacting appropriately, not anxious, not encephalopathic, thought process linear ICD10 Worksheet Patient Problems: Problems Problem Status Onset Dyspnea Acute Elevated troponin Acute
--- NOTE | 2017-02-16 16:40 | SOAPPROG ---
SHELLY Progress Note Assessment/Plan: Assessment: 1. Coronary artery disease 2. Dyslipidemia 3. Obesity 4. Shortness of breath 5. Deconditioning Plan: 02/15/17 13:22 02/16/17 16:39 1. Coronary artery disease 2. Dyslipidemia 3. Obesity 4. Shortness of breath 5. Deconditioning. She is going to have coronary bypass grafting tomorrow. I spent half an hour going over surgery with her and recovery. We talked about end of life care. All her questions have been answered. She is not having an acute coronary syndrome right now. She is not having heart failure. There is no significant arrhythmic issues going on right now at this time. Subjective: She is doing well today. She has no chest pain or chest tightness. She has no fever chills She is having no groin pain. She has no orthopnea PND dyspnea exertion. She has not had any swelling in the leg. She is not having any bleeding. She has no lightheadedness or dizziness. No fever chills Objective: Vital Signs Temp Pulse Resp BP Pulse Ox 36.8 C 82 18 133/82 H 96 02/16/17 12:00 02/16/17 12:00 02/16/17 12:00 02/16/17 12:00 02/16/17 12:00 Laboratory Results 02/16/17 11:03 02/16/17 04:12 02/15/17 02/16/17 02/17/17 05:59 05:59 05:59 Intake Total 450 1520 Balance 450 1520 Physical Exam - Physical Exam General Appearance: alert, no apparent distress Respiratory: lungs clear Cardiac/Chest: regular rate, rhythm, systolic murmur, No friction rub, No irregularly irregular Abdomen: non-tender, soft, No organomegaly Skin: normal color, warm/dry, No pallor Extremities: No pedal edema, No calf tenderness Neuro/Psych: no motor/sensory deficits, alert, normal mood/affect ICD10 Worksheet Patient Problems: Problems Problem Status Onset Dyspnea Acute Elevated troponin Acute
[2017-02-16] MEDS: SENNOSIDES/DOCUSATE SODIUM TAB PO SCH (20:07)
[2017-02-16] MEDS: NIACIN ER 1000 MG TAB.ER PO SCH (20:08)
[2017-02-16] MEDS: ATORVASTATIN CALCIUM 10 MG TAB PO SCH (20:09)
[2017-02-16] MEDS: LOSARTAN POTASSIUM 50 MG TAB PO SCH (20:09)
[2017-02-16] MEDS: ASPIRIN 81 MG CHEWABLE TAB PO SCH (20:09)
[2017-02-16] MEDS: MUPIROCIN 2% 22 GM OINT NS SCH (20:10)
[2017-02-16] MEDS ORDERED: CHLORHEXIDINE GLUC HIBICLENS 118 ML BTL TP SCH (21:00)
[2017-02-16] MEDS: LORazepam 1 MG TAB PO PRN (22:59)
[2017-02-16] MEDS: HEPARIN/DEXTROSE 500 ML IV SCH (23:00)
[2017-02-17 05:35] LABS: HEMATOCRIT 35.8 % (38.0-47.0); HEMOGLOBIN 12.1 g/dL (12.6-16.3); MEAN CELL HEMOGLOBIN 32.3 pg (27.9-34.1); MEAN CELL HEMOGLOBIN CONCENTR. 33.8 g/dL (32.4-36.7); MEAN CELL VOLUME 95.5 fL (81.5-99.8); RED BLOOD CELL COUNT 3.75 10^6/uL (4.18-5.33); RED CELL DISTRIBUTION WIDTH 14.1 % (11.5-15.2)
[2017-02-17 06:16] LABS: ANION GAP 7 mEq/L (8-16); CALCIUM 9.7 mg/dL (8.5-10.4); CARBON DIOXIDE 24 mEq/l (22-31); CHLORIDE 105 mEq/L (97-110); CREATININE 0.7 mg/dL (0.6-1.0); GLOMERULAR FILTRATION RATE > 60; GLUCOSE 90 mg/dL (70-100); POTASSIUM 4.2 mEq/L (3.5-5.2); SODIUM 136 mEq/L (134-144)
[2017-02-17] MEDS ORDERED: ALBUMIN 5% 250 ML BOTTLE IV ONE ×3 (06:37→18:24)
[2017-02-17] MEDS ORDERED: PROTAMINE SULFATE 50 MG/5 ML VIAL IVP ONE (06:37)
[2017-02-17] MEDS ORDERED: CALCIUM CHLORIDE 1 GM/10 ML INJ ONE (06:37)
[2017-02-17] MEDS ORDERED: NA BICARBONATE 50 MEQ/50 ML VIAL ONE (06:38)
[2017-02-17] MEDS ORDERED: AMIODARONE HCL 150 MG/3 ML VIAL ONE (06:38)
[2017-02-17] MEDS ORDERED: POTASSIUM Cl (KCl) 20 MEQ/50 ML BAG IV ONE (06:38)
[2017-02-17] MEDS ORDERED: MILRINONE/DEXTROSE/100 ML BAG IV ONE (06:38)
[2017-02-17] MEDS ORDERED: DOPamine/DEXTROSE/250 ML BAG IV ONE (06:38)
[2017-02-17] MEDS ORDERED: LIDOCAINE 2% 100 MG/5 ML SYR ONE (06:38)
[2017-02-17] MEDS ORDERED: CITRATE DEXTROSE SOLN 500 ML BAG ONE (06:38)
[2017-02-17] MEDS ORDERED: AMINOCAPROIC ACID 5 GM/20 ML VIAL ONE (06:38)
[2017-02-17] MEDS ORDERED: niCARdipine/NACL/200 ML BAG IV ONE (06:38)
[2017-02-17] MEDS ORDERED: ADENOSINE 6 MG/2 ML VIAL ONE (06:38)
[2017-02-17] MEDS ORDERED: MAGNESIUM SULFATE 1 GM/2 ML VIAL ONE (06:39)
[2017-02-17] MEDS ORDERED: methylPREDNISolone SOD SUCC 1 GM/8 ML VIAL ONE (06:39)
[2017-02-17] MEDS ORDERED: ceFAZolin 1 GM VIAL ONE (06:39)
[2017-02-17] MEDS ORDERED: HEPARIN 10,000 UNIT/10 ML MDV ONE (06:39)
[2017-02-17] MEDS ORDERED: niCARdipine/NACL 200 ML IV PRN (07:00)
[2017-02-17] MEDS: LEVOTHYROXINE 100 MCG TAB PO SCH (07:07)
[2017-02-17] MEDS: PRESERVISION AREDS2 FORMULA EYE VIT 1 EACH PO SCH ×2 (07:16→19:21)
[2017-02-17] MEDS: SENNOSIDES/DOCUSATE SODIUM TAB PO SCH ×2 (07:17→21:42)
[2017-02-17] MEDS: LEVOMEFOLATE CALCIUM PO SCH (07:17)
[2017-02-17] MEDS: B6 PO SCH (07:17)
[2017-02-17] MEDS: B12 PO SCH (07:17)
[2017-02-17] MEDS: MUPIROCIN 2% 22 GM OINT NS SCH ×2 (08:00→20:18)
[2017-02-17] MEDS ORDERED: NS 1,000 ML IV ONE (10:00)
[2017-02-17] MEDS ORDERED: AMINOCAPROIC ACID 5 GM/20 ML VIAL IV ONE (10:00)
[2017-02-17] MEDS ORDERED: PAPAVERINE HCL 60 MG in NS 100 ML IV ONE (10:00)
[2017-02-17] MEDS ORDERED: CITRATE DEXTROSE SOLN 500 ML BAG MISC ONE (10:00)
[2017-02-17] MEDS ORDERED: INSULIN REGULAR HUMAN 100 UNIT in NS 100 ML IV ONE (10:00)
[2017-02-17] MEDS ORDERED: SODIUM BICARBONATE 20 MEQ, LIDOCAINE 1% 10 ML in NORMOSOL-R 1,000 ML MISC ONE (10:00)
[2017-02-17] MEDS ORDERED: ceFAZolin 2 GM/DEXTROSE 100 ML IV ONE (10:00)
[2017-02-17] MEDS ORDERED: VERAPAMIL 5 MG, NITROGLYCERIN 2.5 MG, HEPARIN 500 UNIT, SODIUM BICARBONATE 0.2 MEQ in L... MISC ONE (10:00)
[2017-02-17] MEDS ORDERED: PHENYLEPHRINE HCL 50 MG in NS 250 ML IV ONE (10:00)
[2017-02-17] MEDS ORDERED: MANNITOL 25% 12.5 GM/50 ML VIAL IV ONE (10:00)
[2017-02-17] MEDS ORDERED: VANCOMYCIN 1 GM VIAL IV ONE (12:22)
[2017-02-17] MEDS ORDERED: MIDAZOLAM 2 MG/2 ML VIAL ONE (12:54)
[2017-02-17] MEDS ORDERED: PROPOFOL/EMULSION 500 MG/50 ML BOTTLE IV ONE (12:57)
[2017-02-17] MEDS ORDERED: MAGNESIUM SULF 2 GM/WATER 50 ML BAG IV ONE (13:44)
[2017-02-17] MEDS ORDERED: fentaNYL 250 MCG/5 ML INJ ONE ×2 (13:49)
--- NOTE | 2017-02-17 15:00 | SOAPPROG ---
SHELLY Progress Note Assessment/Plan: Assessment: 1. Coronary artery disease 2. Dyslipidemia 3. Obesity 4. Shortness of breath 5. Deconditioning Plan: 02/15/17 13:22 02/17/17 1 1. Coronary artery disease 2. Dyslipidemia 3. Obesity 4. Shortness of breath 5. Deconditioning She is ready for surgery. I have talked to her and her daughter. Have answered all her questions. She is not having chest pain or chest tightness. She has no signs of heart failure. She is having no significant arrhythmic events. She has no neurologic problems that are new or active. we have reviewed the plan and the procedure. She is comfortable with going ahead. Subjective: She is not having chest pain today. . She is active. She is getting ready for surgery. She has no nausea or vomiting She has no fevers or chills She has no headache or stiff neck She is not having palpitations. She has no orthopnea PND or dyspnea on exertion. Objective: Vital Signs Temp Pulse Resp BP Pulse Ox 36.6 C 83 16 129/60 H 93 02/17/17 08:00 02/17/17 08:00 02/17/17 08:00 02/17/17 08:00 02/17/17 08:00 Laboratory Results 02/17/17 04:10 02/17/17 04:10 02/16/17 02/17/17 02/18/17 05:59 05:59 05:59 Intake Total 1520 2225.4 Output Total 950 Balance 1520 1275.4 Physical Exam - Physical Exam General Appearance: alert, no apparent distress Respiratory: rhonchi, No wheezing Abdomen: normal bowel sounds, non-tender, soft, No organomegaly Skin: warm/dry, pallor Extremities: non-tender, No calf tenderness Neuro/Psych: alert, oriented x 3 (The) ICD10 Worksheet Patient Problems: Problems Problem Status Onset Chronic Disease Mgmt/Transitional Care Acute Dyspnea Acute Elevated troponin Acute
--- NOTE | 2017-02-17 17:43 | POSTOPPROG ---
Post Op Note Date of Operation: 02/17/17 Surgeon: Garth Kaplan Sprigger: Kaleb ULRICH Anesthesiologist: Nnamdi Pre-op Diagnosis: Coronary Artery Disease Post-op Diagnosis: Same Indication: CAD Procedure: CABGx3 w/ SVG-Diag, SVG-OM, CARMICHALE-LAD Findings: CAD Inf/Abcess present in the surg proc area at time of surgery?: No EBL: 50-100 Complications: None Drains: Other (Chest tube)
[2017-02-17] MEDS ORDERED: POLYETHYLENE GLYCOL 3350 17 GM PKT PO PRN (18:00)
[2017-02-17] MEDS ORDERED: PANTOPRAZOLE SODIUM 40 MG in NS 100 ML IV ONE (18:00)
[2017-02-17] MEDS ORDERED: MAGNESIUM SULF 2 GM/WATER 50 ML IV ONE (18:00)
[2017-02-17] MEDS ORDERED: ACETAMINOPHEN 650 MG SUPP PR PRN (18:00)
[2017-02-17] MEDS ORDERED: METOCLOPRAMIDE 10 MG/2 ML VIAL IVP PRN (18:00)
[2017-02-17] MEDS ORDERED: MEPERIDINE 25 MG/ML SYR IVP PRN (18:00)
[2017-02-17] MEDS ORDERED: MAGNESIUM HYDROXIDE 30 ML UDCUP PO PRN (18:00)
[2017-02-17] MEDS ORDERED: fentaNYL 100 MCG/2 ML INJ IVP PRN (18:00)
[2017-02-17] MEDS ORDERED: BISACODYL 10 MG SUPP PR PRN (18:00)
[2017-02-17] MEDS ORDERED: SODIUM CL NASAL 45 ML BTL EACHNARE PRN (18:00)
[2017-02-17] MEDS ORDERED: D50W 25 GM/50 ML SYR IVP PRN (18:00)
[2017-02-17] MEDS ORDERED: LACTULOSE 20 GM/30 ML UDCUP PO PRN (18:00)
[2017-02-17] MEDS ORDERED: CEPACOL LOZENGE PO PRN (18:00)
[2017-02-17] MEDS ORDERED: INSULIN REGULAR HUMAN 100 UNIT in NS 100 ML IV SCH (18:00)
[2017-02-17] MEDS ORDERED: NS 1,000 ML IV SCH (18:00)
[2017-02-17] MEDS ORDERED: NOREPINEPHRINE/NS 4 MG/500 ML BAG IV ONE (18:26)
[2017-02-17] MEDS ORDERED: NOREPINEPHRINE BITARTRATE 4 MG in D5W 500 ML IV SCH (18:30)
[2017-02-17] MEDS: ALBUMIN 5% 250 ML IV PRN ×2 (18:30→20:00)
[2017-02-17] MEDS ORDERED: DEXMEDETOMIDINE HCL 400 MCG in NS 100 ML IV SCH (18:30)
--- NOTE | 2017-02-17 18:32 | GOP ---
[f rep st] OPERATIVE REPORT DATE OF OPERATION: 02/17/2017 SURGEON: Garth Kaplan MD CONCRETE PUDDLER: Smiley Manuel PREOPERATIVE DIAGNOSIS: Coronary artery disease. POSTOPERATIVE DIAGNOSIS: Coronary artery disease. PROCEDURE PERFORMED: Three-vessel coronary artery bypass with left internal mammary artery bypass, left anterior descending artery and saphenous vein grafts to the diagonal and the obtuse marginal. FINDINGS: The patient was somewhat oozy. The saphenous vein from the left leg was excellent in mirella lity and caliber. The internal mammary artery was excellent. The aorta was normal. The heart cont racted well. The LAD was 2 mm, of good quality. The diagonal was 1.5 mm and of good quality. The obtuse marginal was 2.25 mm and of good quality. INDICATIONS: She is a 76-year-old active female status post stents in the LAD. The patient present ed with chest pain, was found to have high-grade restenosis of the LAD and was referred for surgery. The patient had been on Plavix. It was allowed to wear off for a couple of days prior to surgery. DESCRIPTION OF PROCEDURE: Consent was signed. The patient was taken to the operating room, where c entral line and arterial lines were inserted. General endotracheal anesthesia was administered. TE E was performed. The patient was prepped and draped. The saphenous vein was harvested from the left thigh using endovascular harvesting system. Medial s ternotomy was performed. The left internal mammary artery was mobilized briefly. Pursestrings were placed. The patient was heparinized, cannulated, and placed on bypass. She was kept normothermic. The aorta was crossclamped. Cold potassium-containing blood cardioplegia was infused into the aor tic root and reinfused after 20 minutes of crossclamp time. Saphenous vein grafts were placed to th e obtuse marginal and the diagonal. The left internal mammary artery was anastomosed to the left an terior descending artery. The pericardium was incised. Crossclamp was removed. The proximal ends of the vein grafts were anastomosed with 4.8 mm punch holes on the ascending aorta. The grafts were de-aired. All anastomoses were checked and found to be hemostatic. Radiopaque rings were placed. The heart was cardioverted and returned to normal sinus rhythm. 1 g of calcium chloride was admini stered, and ventilation was started. The patient was then easily weaned off cardiopulmonary bypass. Hemodynamics were excellent. Protamine sulfate was administered. Hemostasis was obtained. The p atient was decannulated. Mediastinal flap was closed. A right-angle chest tube was placed in the l eft chest, a straight tube in the mediastinum. The sternum was closed with #5 stainless steel wires . The remainder of the chest was closed in the usual fashion. Dressings were applied. COMPLICATIONS: None. POSTOPERATIVE CONDITION: Stable. /[id number]/MODL
[2017-02-17 18:46] LABS: BASE EXCESS -8.4 mEq/L (-2.5-2.5); BICARBONATE 17 mEq/L (22-26); MEASURED OXYGEN SATURATION 99 % (92-95); PCO2 38 mmHg (34-38); PO2 227 mmHg (65-75); TCO2 18 mEq/L (23-27)
[2017-02-17 18:47] LABS: O2 CONCENTRATIION 100 % (0-100); P/F RATIO 227 RATIO; PRESSURE SUPPORT 7
[2017-02-17] MEDS ORDERED: NOREPINEPHRINE/NS 500 ML IV PRN ×2 (20:39→20:43)
[2017-02-17] MEDS ORDERED: NOREPINEPHRINE/NS 500 ML IV SCH (21:00)
[2017-02-17 21:01] LABS: BASE EXCESS -9.1 mEq/L (-2.5-2.5); BICARBONATE 17 mEq/L (22-26); MEASURED OXYGEN SATURATION 98 % (92-95); PCO2 35 mmHg (34-38); PO2 108 mmHg (65-75); TCO2 18 mEq/L (23-27)
[2017-02-17 21:02] LABS: CPAP YES
[2017-02-17 21:03] LABS: END TIDAL CO2 31; O2 CONCENTRATIION 40 % (0-100); P/F RATIO 270 RATIO; PATIENT RATE 17; PRESSURE SUPPORT 7
[2017-02-17] MEDS: POTASSIUM Cl (KCl) 50 ML IV PRN (22:47)
[2017-02-17] MEDS: ACETAMINOPHEN 325 MG TAB PO PRN (23:46)
[2017-02-18] MEDS: ceFAZolin 2 GM/DEXTROSE 100 ML IV SCH ×4 (00:25→21:21)
[2017-02-18 05:16] LABS: % IMMATURE GRANULYOCYTES 0.4 % (0.0-1.1); ABSOLUTE IMMATURE GRANULOCYTES 0.04 10^3/uL (0.00-0.10); ADD DIFF? NO; ADD MORPH? NO; ADD SCAN? NO; ATYPICAL LYMPHOCYTE FLAG 0 (0-99); FRAGMENT RBC FLAG 0 (0-99); HEMATOCRIT 20.9 % (38.0-47.0); HEMOGLOBIN 7.1 g/dL (12.6-16.3); LEFT SHIFT FLG 10 (0-99); LIPEMIA HEMOLYSIS FLAG 90 (0-99); MEAN CELL HEMOGLOBIN 33.3 pg (27.9-34.1); MEAN CELL VOLUME 98.1 fL (81.5-99.8); MEAN PLATELET VOLUME 11.5 fL (8.7-11.7); PLATELET CLUMPS FLAG 0 (0-99); PLATELET COUNT 80 10^3/uL (150-400); RED BLOOD CELL COUNT 2.13 10^6/uL (4.18-5.33); RED CELL DISTRIBUTION WIDTH 14.9 % (11.5-15.2)
[2017-02-18 05:28] LABS: ANION GAP 7 mEq/L (8-16); CALCIUM 8.2 mg/dL (8.5-10.4); CARBON DIOXIDE 24 mEq/l (22-31); CHLORIDE 111 mEq/L (97-110); CREATININE 0.7 mg/dL (0.6-1.0); GLOMERULAR FILTRATION RATE > 60; GLUCOSE 89 mg/dL (70-100); POTASSIUM 4.1 mEq/L (3.5-5.2); SODIUM 142 mEq/L (134-144)
[2017-02-18] MEDS: HEPARIN 5,000 UNIT/0.5 ML SYR SC SCH ×3 (05:47→20:42)
[2017-02-18] MEDS ORDERED: FUROSEMIDE 40 MG/4 ML VIAL IVP ONE (06:30)
[2017-02-18] MEDS: HYDROCODONE/APAP 5/325 TAB PO PRN ×3 (07:33→21:13)
[2017-02-18] MEDS: PANTOPRAZOLE SODIUM 40 MG TAB PO SCH (07:34)
[2017-02-18] MEDS: SENNOSIDES/DOCUSATE SODIUM TAB PO SCH ×2 (07:34→21:15)
--- NOTE | 2017-02-18 07:46 | SOAPPROG ---
SOAP Progress Note Assessment/Plan: POD #1: CABGx3 (CARMICHAEL-LAD, SVG-Diag, SVG-OM) CAD with associated SOB s/p CABGx3 - Weaned from CPB without the need for blood product transfusion, pacing, or inotropic support. Transferred to the ICU and extubated shortly. Levophed used for short duration until adequate fluid administered. Clear for transfer to PCU this AM. - Hold BB until higher BP, continue ASA, statin to start Monday night, heparin SQ when platelets > 100 - AL/FC out. CTs to remain on suction with possible DC tomorrow - SCDs for DVT prophylaxis - PT for ambulation Acute blood loss anemia with thrombocytopenia/dysfunctional platelets d/t recent Plavix use - Monitor H/H and CTOP (thinner this AM) - will transfuse PRBCs if patient symptomatic - Hold DVT prophylaxis until platelets > 100 HTN - pre-op SBP in 170s - Management when appropriate Subjective: Pt reports generalized body pain. Denies SOB/CP. Happy surgery is over. Objective: Vital Signs Temp Pulse Resp BP Pulse Ox 36.5 C 99 17 113/46 L 100 02/18/17 06:00 02/18/17 06:00 02/18/17 06:00 02/18/17 06:00 02/18/17 06:00 Laboratory Results 02/18/17 04:35 02/18/17 04:35 02/17/17 02/18/17 02/19/17 05:59 05:59 05:59 Intake Total 2225.4 2918 Output Total 950 1595 Balance 1275.4 1323 Physical Exam - Physical Exam General Appearance: alert, no apparent distress EENT: normal ENT inspection Neck: normal inspection Respiratory: other (CT on suction w/o air leak ), No respiratory distress Cardiac/Chest: regular rate, rhythm, other (CXR: improvement in L-sided opacity ) Abdomen: non-tender, soft, No distended Skin: warm/dry, pallor Extremities: pedal edema Neuro/Psych: no motor/sensory deficits, alert, normal mood/affect, oriented x 3 ICD10 Worksheet Patient Problems: Problems Problem Status Onset Platelet inhibition due to Plavix Acute Acute blood loss as cause of postoperative anemia Acute S/P CABG x 3 Acute Chronic Disease Mgmt/Transitional Care Acute Dyspnea Acute Elevated troponin Acute
[2017-02-18] MEDS: POTASSIUM Cl (KCl) 50 ML IV PRN (08:08)
[2017-02-18] MEDS: ASPIRIN 81 MG CHEWABLE TAB PO SCH (08:17)
[2017-02-18] MEDS ORDERED: ASPIRIN 81 MG CHEWABLE TAB TUBE PRN (09:00)
[2017-02-18] MEDS: MUPIROCIN 2% 22 GM OINT NS SCH ×2 (09:38→21:13)
[2017-02-18] MEDS: traMADol 50 MG TAB PO PRN (09:38)
--- NOTE | 2017-02-18 10:26 | SOAPPROG ---
SOAP Progress Note Assessment/Plan: Assessment: Plan: Subjective: Afebrile VSS A and O Mod pain CT about 1100cc since OR. Minimal last few hours Good UO Hct 20% - transfuse BMP nl Lungs clear ant Cor RRR w/o m Stable. Transfer Objective: Vital Signs Temp Pulse Resp BP Pulse Ox 36.4 C 95 18 113/47 L 98 02/18/17 07:00 02/18/17 10:00 02/18/17 10:00 02/18/17 10:00 02/18/17 10:00 Laboratory Results 02/18/17 04:35 02/18/17 04:35 02/17/17 02/18/17 02/19/17 05:59 05:59 05:59 Intake Total 2225.4 2918 Output Total 950 1595 820 Balance 1275.4 1323 -820 ICD10 Worksheet Patient Problems: Problems Problem Status Onset Acute blood loss as cause of postoperative anemia Acute Chronic Disease Mgmt/Transitional Care Acute Dyspnea Acute Elevated troponin Acute Platelet inhibition due to Plavix Acute S/P CABG x 3 Acute
[2017-02-18] MEDS ORDERED: KETOROLAC 30 MG/1 ML SDV IVP ONE (11:00)
--- NOTE | 2017-02-18 15:56 | CPEKG ---
Heart Rate: 93 RR Interval: 645 P-R Interval: 180 QRSD Interval: 78 QT Interval: 408 QTC Interval: 508 P [place]: 77 QRS [place]: 41 T Wave [place]: 67 EKG Severity - BORDERLINE ECG - EKG Impression: SINUS RHYTHM EKG Impression: BORDERLINE PROLONGED QT INTERVAL EKG Impression: ST DEPRESSION ANTERIOR-LATERALLY, CONSIDER ISCHEMIA OR DIGITALIS EFFECT Electronically Signed By: Carlos Chapa 19-Feb-2017 07:37:54
[2017-02-18 19:02] LABS: HEMATOCRIT 23.9 % (38.0-47.0); HEMOGLOBIN 7.9 g/dL (12.6-16.3)
[2017-02-19] MEDS: HYDROCODONE/APAP 5/325 TAB PO PRN ×3 (05:48→23:54)
[2017-02-19] MEDS: ceFAZolin 2 GM/DEXTROSE 100 ML IV SCH (05:54)
[2017-02-19 06:09] LABS: % IMMATURE GRANULYOCYTES 0.3 % (0.0-1.1); ABSOLUTE IMMATURE GRANULOCYTES 0.04 10^3/uL (0.00-0.10); ADD DIFF? NO; ADD MORPH? NO; ADD SCAN? NO; ATYPICAL LYMPHOCYTE FLAG 0 (0-99); FRAGMENT RBC FLAG 0 (0-99); HEMATOCRIT 23.1 % (38.0-47.0); HEMOGLOBIN 7.8 g/dL (12.6-16.3); LEFT SHIFT FLG 0 (0-99); LIPEMIA HEMOLYSIS FLAG 90 (0-99); MEAN CELL HEMOGLOBIN 33.1 pg (27.9-34.1); MEAN CELL HEMOGLOBIN CONCENTR. 33.8 g/dL (32.4-36.7); MEAN CELL VOLUME 97.9 fL (81.5-99.8); MEAN PLATELET VOLUME 11.7 fL (8.7-11.7); PLATELET CLUMPS FLAG 10 (0-99); PLATELET COUNT 85 10^3/uL (150-400); RED BLOOD CELL COUNT 2.36 10^6/uL (4.18-5.33); RED CELL DISTRIBUTION WIDTH 17.2 % (11.5-15.2)
[2017-02-19] MEDS: HEPARIN 5,000 UNIT/0.5 ML SYR SC SCH ×2 (06:13→12:32)
[2017-02-19] MEDS: LEVOTHYROXINE 100 MCG TAB PO SCH (06:28)
[2017-02-19 06:37] LABS: ANION GAP 5 mEq/L (8-16); CALCIUM 8.3 mg/dL (8.5-10.4); CARBON DIOXIDE 25 mEq/l (22-31); CHLORIDE 105 mEq/L (97-110); CREATININE 1.1 mg/dL (0.6-1.0); GLOMERULAR FILTRATION RATE 48; GLUCOSE 126 mg/dL (70-100); POTASSIUM 4.3 mEq/L (3.5-5.2); SODIUM 135 mEq/L (134-144)
--- NOTE | 2017-02-19 07:54 | SOAPPROG ---
SOAP Progress Note Assessment/Plan: POD# 2: CABGx3 (CARMICHAEL-LAD, SVG-Diag, SVG-OM), EVH L thigh CAD with associated SOB s/p CABGx3 - Hold BB until higher BP, continue ASA, statin to start Monday night, heparin SQ when platelets > 100 - CTs dc'd this AM - SCDs for DVT prophylaxis - PT for ambulation Acute blood loss anemia with thrombocytopenia/dysfunctional platelets d/t recent Plavix use - 1U PRBC transfused 02/19 with adequate HCT response. PT still c/o lethargy/ weakness today. Will transfuse 1 additional unit. - Hold DVT prophylaxis until platelets > 100 HTN - pre-op SBP in 170s - Management when appropriate Objective: Vital Signs Temp Pulse Resp BP Pulse Ox 36.8 C 86 18 105/48 L 93 02/19/17 04:00 02/19/17 04:00 02/19/17 04:00 02/19/17 04:00 02/19/17 04:00 Laboratory Results 02/19/17 06:00 02/19/17 06:00 02/18/17 02/19/17 02/20/17 05:59 05:59 05:59 Intake Total 2918 2147 Output Total 1595 2100 Balance 1323 47 Physical Exam - Physical Exam General Appearance: alert, no apparent distress EENT: normal ENT inspection Neck: normal inspection Respiratory: lungs clear, No respiratory distress Cardiac/Chest: regular rate, rhythm, other (CXR - improvement in aeration, no effusions ) Abdomen: non-tender, soft, No distended Skin: warm/dry, pallor Extremities: pedal edema (trace b/l), other (LLE soft) Neuro/Psych: no motor/sensory deficits, alert, normal mood/affect, oriented x 3 ICD10 Worksheet Patient Problems: Problems Problem Status Onset Acute blood loss as cause of postoperative anemia Acute Chronic Disease Mgmt/Transitional Care Acute Dyspnea Acute Elevated troponin Acute Platelet inhibition due to Plavix Acute S/P CABG x 3 Acute
--- NOTE | 2017-02-19 08:49 | SOAPPROG ---
SOAP Progress Note Assessment/Plan: Assessment: 1. Coronary artery disease 2. Dyslipidemia 3. Obesity 4. Shortness of breath 5. Deconditioning Plan: 02/15/17 13:22 02/17/17 1 02/19/17 08:51 1. Coronary artery disease 2. Status post coronary bypass grafting 3. Obesity 4. Deconditioning 5. Hyperlipidemia She is now 2 days after her coronary artery bypass grafting. She received a CARMICHAEL to the LAD. She received saphenous vein grafts to diagonal 1 and to the obtuse marginal branch of the circumflex. He has received some blood postop and is going to get more blood today. She looks like she is doing very well. We started talking about prevention. She is going to going to cardiac rehab. I have discussed this with her. We also started talking about losing weight and exercise. She is being very good support about the whole thing. She has good Spirits. Reviewed c CTS all her ? ans. Subjective: She is doing well us morning. She has no chest pain except soreness. She has no fever chills. She has no nausea or vomiting. She is somewhat tired. She has no new significant edema. She has no abdominal pain She has no cough Is no new neurologic complaints Objective: Vital Signs Temp Pulse Resp BP Pulse Ox 36.9 C 85 16 98/37 L 91 L 02/19/17 07:53 02/19/17 07:53 02/19/17 07:53 02/19/17 07:53 02/19/17 07:53 Laboratory Results 02/19/17 06:00 02/19/17 06:00 02/18/17 02/19/17 02/20/17 05:59 05:59 05:59 Intake Total 2918 2147 Output Total 1595 2100 Balance 1323 47 Selected Entries 02/18/17 02/19/17 02/19/17 20:00 04:00 07:53 O2 Sat (%) 91 L Temperature (C) 36.9 C Blood Pressure 90/48 L 105/48 L 98/37 L Mean Arterial 62 67 57 L Pressure (MAP) Laboratory Tests 02/17/17 02/18/17 02/18/17 20:51 04:35 18:49 Hct 20.9 L D 23.9 L Plt Count pCO2 35 pO2 108 H D ABG pH 7.29 L Carbon Dioxide 02/19/17 02/19/17 06:00 06:00 Hct 23.1 L Plt Count 85 L pCO2 pO2 ABG pH Carbon Dioxide 25 Physical Exam - Physical Exam General Appearance: alert, mild distress Neck: supple Respiratory: rhonchi, No stridor, No wheezing Cardiac/Chest: regular rate, rhythm, systolic murmur, No edema Abdomen: non-tender, soft, No organomegaly Skin: warm/dry, pallor Extremities: No calf tenderness Neuro/Psych: no motor/sensory deficits, alert, normal mood/affect ICD10 Worksheet Patient Problems: Problems Problem Status Onset Acute blood loss as cause of postoperative anemia Acute Chronic Disease Mgmt/Transitional Care Acute Dyspnea Acute Elevated troponin Acute Platelet inhibition due to Plavix Acute S/P CABG x 3 Acute
[2017-02-19] MEDS: SENNOSIDES/DOCUSATE SODIUM TAB PO SCH ×2 (10:11→19:46)
[2017-02-19] MEDS: PANTOPRAZOLE SODIUM 40 MG TAB PO SCH (10:12)
[2017-02-19] MEDS: FERROUS SULFATE 325 MG TAB PO SCH (10:12)
[2017-02-19] MEDS: ASPIRIN 81 MG CHEWABLE TAB PO SCH (10:12)
[2017-02-19] MEDS: MUPIROCIN 2% 22 GM OINT NS SCH (12:33)
[2017-02-19] MEDS ORDERED: AMIODARONE A.FIB-6HR INFSN (ORDER 2/3) IV ONE (15:00)
[2017-02-19] MEDS ORDERED: AMIODARONE A.FIB-LOAD DOSE(ORDER 1/3) IV ONE (15:00)
[2017-02-19] MEDS: PRESERVISION AREDS2 FORMULA EYE VIT 1 EACH PO SCH (18:03)
[2017-02-19] MEDS: METOPROLOL TARTRATE 25 MG TAB PO SCH (19:45)
[2017-02-19] MEDS: ENOXAPARIN 30 MG/0.3 ML SYR SC SCH (19:47)
[2017-02-19] MEDS ORDERED: AMIODARONE A.FIB-18HR INFSN (ORDER 3/3) IV ONE (21:00)
[2017-02-19] MEDS: NIACIN ER 1000 MG TAB.ER PO SCH (21:37)
[2017-02-20] MEDS: LEVOTHYROXINE 100 MCG TAB PO SCH (04:27)
[2017-02-20 05:54] LABS: HEMATOCRIT 28.9 % (38.0-47.0); HEMOGLOBIN 9.6 g/dL (12.6-16.3); MEAN CELL HEMOGLOBIN CONCENTR. 33.2 g/dL (32.4-36.7); MEAN CELL VOLUME 96.3 fL (81.5-99.8); RED CELL DISTRIBUTION WIDTH 17.4 % (11.5-15.2)
[2017-02-20 06:15] LABS: ANION GAP 8 mEq/L (8-16); CALCIUM 8.8 mg/dL (8.5-10.4); CARBON DIOXIDE 24 mEq/l (22-31); CHLORIDE 102 mEq/L (97-110); GLOMERULAR FILTRATION RATE 54; GLUCOSE 129 mg/dL (70-100); POTASSIUM 4.2 mEq/L (3.5-5.2); SODIUM 134 mEq/L (134-144)
[2017-02-20] MEDS: HYDROCODONE/APAP 5/325 TAB PO PRN ×2 (08:01→23:30)
[2017-02-20] MEDS: PANTOPRAZOLE SODIUM 40 MG TAB PO SCH (08:01)
[2017-02-20] MEDS: METOPROLOL TARTRATE 25 MG TAB PO SCH ×2 (08:01→19:38)
[2017-02-20] MEDS: ENOXAPARIN 30 MG/0.3 ML SYR SC SCH (08:02)
[2017-02-20] MEDS: ASPIRIN 81 MG CHEWABLE TAB PO SCH (08:02)
[2017-02-20] MEDS: ONDANSETRON 4 MG/2 ML VIAL IVP PRN (08:06)
[2017-02-20] MEDS: SENNOSIDES/DOCUSATE SODIUM TAB PO SCH (08:15)
[2017-02-20] MEDS: PRESERVISION AREDS2 FORMULA EYE VIT 1 EACH PO SCH ×3 (08:15→18:14)
[2017-02-20] MEDS ORDERED: AMIODARONE HCL 100 ML IV ONE (08:24)
--- NOTE | 2017-02-20 08:31 | SOAPPROG ---
SOAP Progress Note Assessment/Plan: Assessment: POD#3 CABGx3 (CARMICHAEL-LAD, SVG-Diag, SVG-OM), EVH left thigh Sx CAD/ISR with preserved LV systolic fx - s/p CABG. Stable postop course. No significant fluid overload. Tubes and wires out. Secondary prevention with ASA, statin, and BB uptitrated as tolerated. Postop AFib - Onset yest afternoon, with RVR. Started on amio with improved rate control, but yet to convert. Sufficient BP for adjunctive BB. DOAC for [id number] score of 5. Acute blood loss anemia with thrombocytopenia and mild coagulopathy - Exacerbated by incomplete Plavix washout. Stable s/p 2u PRBC. Hx HTN - Controlled on ARB. Postop management preferentially with BB and Lasix. Plan: Amio 150 mg x 1. Transtion amio gtt to orals tonight. Inc metoprolol to 25 mg BID. Start low dose Eliquis. Start daily diuresis. Inc activity as tolerated. Dispo - Likely SNF in 48hrs if rhythm stable. 02/20/17 08:25 Subjective: Very tired and somewhat overwhelmed by degree of incapacitation. No appetite. Finds it taxing just to walk to the bathroom. Objective: Vital Signs Temp Pulse Resp BP Pulse Ox 36.2 C 98 20 113/72 96 02/20/17 07:25 02/20/17 04:00 02/20/17 07:25 02/20/17 07:25 02/20/17 07:25 Laboratory Results 02/20/17 05:00 02/20/17 05:00 02/19/17 02/20/17 02/21/17 05:59 05:59 05:59 Intake Total 2147 1553 Output Total 2100 500 Balance 47 1053 AF yest pm. Brief RVR. No hypotension. On amio per protocol. Ensuing HRs < 100. Positive fluid balance, +4.6 kg overall. Labs ok. Appropriate response to PRBC. - Pending Discharge Pending Discharge Within 48 Hours: Yes Pending Discharge Date: 02/22/17 Pending Discharge Time: 11:00 Physical Exam - Physical Exam General Appearance: alert, no apparent distress (depressed affect) Respiratory: lungs clear (grossly) Cardiac/Chest: irregularly irregular, other (Sternum grossly stable. Sternotomy and LLE venotomy CDI) Abdomen: non-tender, soft Skin: warm/dry Extremities: swelling (1+ gen) ICD10 Worksheet Patient Problems: Problems Problem Status Onset Acute blood loss as cause of postoperative anemia Acute Chronic Disease Mgmt/Transitional Care Acute Coronary stent restenosis due to progression of disease Acute Dyspnea Acute Elevated troponin Acute Platelet inhibition due to Plavix Acute Postoperative atrial fibrillation Acute S/P CABG x 3 Acute CAD in [place] artery Chronic
[2017-02-20] MEDS ORDERED: SENNOSIDES/DOCUSATE SODIUM TAB PO PRN (09:00)
[2017-02-20] MEDS ORDERED: METOPROLOL TARTRATE 25 MG TAB PO ONE (09:00)
[2017-02-20] MEDS: APIXABAN 2.5 MG TAB PO SCH ×2 (09:09→19:37)
[2017-02-20] MEDS: POTASSIUM CL 20 MEQ TAB PO SCH ×2 (09:09→19:38)
[2017-02-20] MEDS: FUROSEMIDE 40 MG TAB PO SCH ×2 (09:09→15:12)
[2017-02-20] MEDS: FERROUS SULFATE 325 MG TAB PO SCH (12:09)
[2017-02-20] MEDS: traMADol 50 MG TAB PO PRN (15:59)
[2017-02-20] MEDS: NIACIN ER 1000 MG TAB.ER PO SCH (19:38)
[2017-02-20] MEDS ORDERED: AMIODARONE HCL 200 MG TAB PO SCH (21:00)
[2017-02-20] MEDS: ATORVASTATIN CALCIUM 10 MG TAB PO SCH (23:30)
[2017-02-21] MEDS: LEVOTHYROXINE 100 MCG TAB PO SCH (05:59)
[2017-02-21] MEDS: traMADol 50 MG TAB PO PRN ×2 (05:59→20:37)
[2017-02-21 06:52] LABS: POTASSIUM 4.3 mEq/L (3.5-5.2)
[2017-02-21] MEDS: ONDANSETRON 4 MG/2 ML VIAL IVP PRN (07:44)
--- NOTE | 2017-02-21 07:45 | SOAPPROG ---
SOAP Progress Note Assessment/Plan: Assessment: POD#4 CABGx3 (CARMICHAEL-LAD, SVG-Diag, SVG-OM), EVH left thigh Sx CAD/ISR with preserved LV systolic fx - s/p CABG. Stable postop course. No significant fluid overload. Tubes and wires out. Secondary prevention with ASA, statin, and BB uptitrated as tolerated. Postop AFib - Onset POD#2, with RVR. Improved rate control on amio and inc BB and SR restored this am. DOAC for [id number] score of 5. Acute blood loss anemia with thrombocytopenia and mild coagulopathy - Exacerbated by incomplete Plavix washout. Stable s/p 2u PRBC. Postop nausea - Impairing appetite and mobility. Likely exacerbated by narcs and amio. Will stop amio and reserve prn recurrent RVR. Add NSAID. Hx HTN - Controlled on ARB. Postop management preferentially with BB and Lasix. Plan: Stop amiodarone. Cont metoprolol 25 mg BID. Cont Eliquis 2.5 mg BID. Trial inc oral lasix of 80mg. Nutritional suppl. Inc activity as tolerated. Dispo - Likely SNF ([facility]) tomorrow or Th. 02/21/17 07:39 Subjective: Didn't sleep well and tired this morning. Less nauseous but appetite remains poor and motivation to move lacking. Objective: Vital Signs Temp Pulse Resp BP Pulse Ox 36.8 C 85 16 91/47 L 91 L 02/21/17 07:21 02/21/17 07:21 02/21/17 07:21 02/21/17 07:21 02/21/17 07:21 Laboratory Results 02/20/17 05:00 02/21/17 06:00 02/20/17 02/21/17 02/22/17 05:59 05:59 05:59 Intake Total 1553 900 Output Total 500 1000 Balance 1053 -100 Sinus rhythm restored ~6am. Inc dose of BB tolerated. Improved fluid balance. Now + 4kg. Less than expected UOP on 40mg lasix. - Pending Discharge Pending Discharge Within 24 Hours: Yes Pending Discharge Date: 02/22/17 Pending Discharge Time: 11:00 Physical Exam - Physical Exam General Appearance: no apparent distress, other (Able to get OOB and walk to chair w 4WW) Respiratory: lungs clear Cardiac/Chest: regular rate, rhythm, other (Sternum grossly stable. Sternotomy and LLE venotomy CDI) Abdomen: non-tender, soft Skin: warm/dry Extremities: other (1+ gen) ICD10 Worksheet Patient Problems: Problems Problem Status Onset Acute blood loss as cause of postoperative anemia Acute Chronic Disease Mgmt/Transitional Care Acute Coronary stent restenosis due to progression of disease Acute Dyspnea Acute Elevated troponin Acute Platelet inhibition due to Plavix Acute Postoperative atrial fibrillation Acute S/P CABG x [address] [place] artery Chronic
[2017-02-21] MEDS: APIXABAN 2.5 MG TAB PO SCH ×2 (07:49→20:37)
[2017-02-21] MEDS: PANTOPRAZOLE SODIUM 40 MG TAB PO SCH (07:49)
[2017-02-21] MEDS ORDERED: FUROSEMIDE 80 MG TAB PO ONE (08:00)
[2017-02-21] MEDS ORDERED: POTASSIUM CL 20 MEQ TAB PO ONE (08:00)
[2017-02-21] MEDS: ASPIRIN 81 MG CHEWABLE TAB PO SCH (09:00)
[2017-02-21] MEDS: METOPROLOL TARTRATE 25 MG TAB PO SCH ×2 (09:02→20:36)
[2017-02-21] MEDS: FERROUS SULFATE 325 MG TAB PO SCH (09:03)
[2017-02-21] MEDS: PRESERVISION AREDS2 FORMULA EYE VIT 1 EACH PO SCH ×2 (09:03→18:14)
[2017-02-21] MEDS: KETOROLAC 15 MG/1 ML SDV IVP PRN ×2 (12:33→20:38)
[2017-02-21] MEDS: NIACIN ER 1000 MG TAB.ER PO SCH (20:36)
[2017-02-21] MEDS: ATORVASTATIN CALCIUM 10 MG TAB PO SCH (20:38)
[2017-02-21] MEDS: ACETAMINOPHEN 325 MG TAB PO PRN (22:49)
[2017-02-22 06:10] LABS: HEMATOCRIT 24.7 % (38.0-47.0); HEMOGLOBIN 8.1 g/dL (12.6-16.3); MEAN CELL HEMOGLOBIN 32.3 pg (27.9-34.1); MEAN CELL HEMOGLOBIN CONCENTR. 32.8 g/dL (32.4-36.7); MEAN CELL VOLUME 98.4 fL (81.5-99.8); RED BLOOD CELL COUNT 2.51 10^6/uL (4.18-5.33); RED CELL DISTRIBUTION WIDTH 16.6 % (11.5-15.2)
[2017-02-22] MEDS: LEVOTHYROXINE 100 MCG TAB PO SCH (06:30)
[2017-02-22 06:32] LABS: ANION GAP 5 mEq/L (8-16); CALCIUM 8.8 mg/dL (8.5-10.4); CARBON DIOXIDE 27 mEq/l (22-31); CHLORIDE 102 mEq/L (97-110); GLOMERULAR FILTRATION RATE 24; GLUCOSE 86 mg/dL (70-100); POTASSIUM 4.1 mEq/L (3.5-5.2); SODIUM 134 mEq/L (134-144)
[2017-02-22] MEDS ORDERED: NS 1,000 ML IV ONE ×2 (07:25→08:00)
[2017-02-22] MEDS ORDERED: NS 1,000 ML IV SCH (07:30)
--- NOTE | 2017-02-22 07:31 | SOAPPROG ---
SOAP Progress Note Assessment/Plan: POD# 5: CABGx3 (CARMICHAEL-LAD, SVG-Diag, SVG-OM), EVH L thigh CAD with associated SOB s/p CABGx3 - ASA/statin - BB held d/t hypotension - SCDs/Eliquis for DVT prophylaxis - PT for ambulation Acute blood loss anemia with thrombocytopenia/dysfunctional platelets d/t recent Plavix use - Stable s/p 2U PRBC - Hold DVT prophylaxis until platelets > 100 Paroxysmal AF with RVR - Conversion to SR with BB/amiodarone. Amiodarone since stopped d/t nausea - Continue Eliquis BID for thromboprophylaxis HTN - pre-op SBP in 170s - Management when appropriate KAYLA - Cr 2.0 from 1.0 - Likely pre-renal as hypotensive with low UOP despite Lasix - will give fluid and dc BB/Lasix - 2D ECHO to assess LV/RV and r/o pericardial effusion Subjective: Feels well. Still tired. Denies CP/SOB. Objective: Vital Signs Temp Pulse Resp BP Pulse Ox 36.3 C 82 12 85/62 L 97 02/22/17 04:00 02/22/17 04:00 02/22/17 04:00 02/22/17 04:00 02/22/17 04:00 Laboratory Results 02/22/17 06:00 02/22/17 06:00 02/21/17 02/22/17 02/23/17 05:59 05:59 05:59 Intake Total 900 1150 Output Total 1000 750 Balance -100 400 Physical Exam - Physical Exam General Appearance: WD/WN, alert, no apparent distress EENT: normal ENT inspection Neck: normal inspection Respiratory: No respiratory distress Cardiac/Chest: regular rate, rhythm Abdomen: non-tender, soft, No distended Skin: normal color, warm/dry Extremities: No pedal edema Neuro/Psych: no motor/sensory deficits, alert, normal mood/affect, oriented x 3 ICD10 Worksheet Patient Problems: Problems Problem Status Onset Acute blood loss as cause of postoperative anemia Acute Chronic Disease Mgmt/Transitional Care Acute Coronary stent restenosis due to progression of disease Acute Dyspnea Acute Elevated troponin Acute Platelet inhibition due to Plavix Acute Postoperative atrial fibrillation Acute S/P CABG x 3 Acute CAD in [place] artery Chronic
[2017-02-22 09:59] LABS: HEMATOCRIT 26.3 % (38.0-47.0); HEMOGLOBIN 8.7 g/dL (12.6-16.3); MEAN CELL HEMOGLOBIN 32.8 pg (27.9-34.1); MEAN CELL HEMOGLOBIN CONCENTR. 33.1 g/dL (32.4-36.7); MEAN CELL VOLUME 99.2 fL (81.5-99.8); RED BLOOD CELL COUNT 2.65 10^6/uL (4.18-5.33); RED CELL DISTRIBUTION WIDTH 16.1 % (11.5-15.2)
[2017-02-22 10:05] LABS: BASE EXCESS -7.6 mEq/L (-2.5-2.5); BICARBONATE 17 mEq/L (22-26); MEASURED OXYGEN SATURATION 98 % (92-95); PCO2 33 mmHg (34-38); PO2 112 mmHg (65-75); TCO2 18 mEq/L (23-27)
[2017-02-22] MEDS ORDERED: ALBUMIN 5% 500 ML BOTTLE IV ONE (10:11)
[2017-02-22 10:37] LABS: ANION GAP 9 mEq/L (8-16); CALCIUM 8.3 mg/dL (8.5-10.4); CARBON DIOXIDE 20 mEq/l (22-31); CHLORIDE 104 mEq/L (97-110); GLOMERULAR FILTRATION RATE 24; GLUCOSE 103 mg/dL (70-100); MAGNESIUM 2.1 mg/dL (1.6-2.3); SODIUM 133 mEq/L (134-144)
[2017-02-22] MEDS ORDERED: DOPamine/DEXTROSE/250 ML BAG IV ONE (10:38)
[2017-02-22] MEDS ORDERED: SODIUM BICARBONATE 50 MEQ/50 ML SYR IVP ONE (10:39)
[2017-02-22] MEDS ORDERED: SODIUM BICARBONATE 50 MEQ/50 ML SYR ONE (10:45)
--- NOTE | 2017-02-22 10:58 | ECHO ---
[id number] + + [address] : : [facility] [address] : : [phone] + + Adult Echocardiographic Report + ------+ :Name: MATTIE ADHIKARI GStudy Date: 02/22/2017 09:24 AM : : Hospital Admission Number: [id number] Locatio n: 217: :: 1940 Gender: Female : :Age: 76 yrs Race: WH : :Reason For Study: Eval for pericardial effusion STAT : :History: Post op CABG, Stat due to hypotension and low O2 : :sats. : + ------+ Doppler Measurements \T\ Calculations TR max anna: 267.4 cm/sec TR max P.6 mmHg RAP systole: 5.0 mmHg RVSP(TR): 33.6 mmHg Left Ventricle The left ventricular ejection fraction is normal. LV appears low volume. Right Ventricle The right ventricle is normal in size and function. The right ventricular systolic function is normal. Atria The left atrium is mild to moderately dilated. The right atrium is mild to moderately dilated. Mitral Valve The mitral valve leaflets appear normal. There is no evidence of stenosis, fluttering, or prolapse. Tricuspid Valve The tricuspid valve is not well visualized. No tricuspid regurgitation. Right ventricular systolic pressure is normal. Pericardium/Pleural There is no pericardial effusion. There is a moderate pleural effusion. Conclusion This is a limited echo to evaluate for pericardial effusion during a STAT call due to low BP and decreased O2 sats. Limited echocardiogram (1) Normal left ventricular systolic ejection fraction (55%) - grossly normal wall motion (2) No left ventricular hypertrophy (3) Diastolic function not assessed (4) Grossly normal right ventricular size and function (5) Mild to moderate biatrial dilation noted (6) Grossly normal mitral valve (7) Poor visualization of the tricupsid, aortic, and pulmonic valves (8) No appreciable pericardial effusion (9) Moderate pleural effusion Final Reading Physician: Kerline Mast signed on 02/22/2017 10:57 AM Ordering Physician: Alverto Steward Performed By: Gallo Knox, RANDALLCS
[2017-02-22 11:14] LABS: ALANINE AMINOTRANSFERASE 23 IU/L (9-52); ALBUMIN 2.6 g/dL (3.5-5.0); ALKALINE PHOSPHATASE 46 IU/L (38-126); AMYLASE 37 IU/L (30-110); ASPARTATE AMINOTRANSFERASE 22 IU/L (14-46); BILIRUBIN,TOTAL 1.4 mg/dL (0.1-1.4); BILIRUBIN-CONJUGATED 0.4 mg/dL (0.0-0.5); TOTAL PROTEIN 4.6 g/dL (6.3-8.2)
[2017-02-22] MEDS ORDERED: VANCOMYCIN 1.5 GM in D5W 250 ML IV SCH (11:30)
[2017-02-22] MEDS: ONDANSETRON 4 MG/2 ML VIAL IVP PRN (11:53)
[2017-02-22] MEDS: PIPERACILLIN/TAZO 2.25 GM/DEX 50 ML IV SCH ×2 (12:30→17:58)
[2017-02-22] MEDS: APIXABAN 2.5 MG TAB PO SCH ×2 (13:01→20:28)
[2017-02-22] MEDS: PANTOPRAZOLE SODIUM 40 MG TAB PO SCH (13:01)
[2017-02-22] MEDS: ASPIRIN 81 MG CHEWABLE TAB PO SCH (13:01)
--- NOTE | 2017-02-22 13:04 | GCON ---
[f rep st] CONSULTATION PULMONARY CRITICAL CARE CONSULTATION DATE OF CONSULTATION: 02/22/2017 REASON FOR CONSULTATION: Hypotension. HISTORY: The patient is a 76-year-old who is 5 days status post 3-vessel coronary artery bypass gra fting. She was doing relatively well on the floor. Today, she was noted to have lower blood pressu res. She was given intravenous saline but remained hypotensive and became more so when she stood up , with significant orthostatic changes. She was given further fluids. A cardiac echo was done, i ch showed normal left ventricular ejection fraction, with a suggestion of underfilling. The right-s ided findings were normal, with no evidence of acute pulmonary hypertension or right heart dysfuncti on. The patient did complain of some pain in her right calf. Subsequent ultrasound of the lower ex tremities has been negative for DVT. She was moved to the intensive care unit, given more crystalloid and colloid, and placed on dopamine . Current systolic blood pressure is approximately 70. She has been found to be relatively anemic, with a hematocrit of approximately 26. She is mildly acidotic with a pH of 7.34, pCO2 of 33, and a pO2 of 112. Base excess is -8. Creatinine this morning is 2.0, up from her baseline of 1.0. She did receive Lasix diuresis yesterday. She has some complaints of abdominal discomfort and is somewh at tender on examination. She is somewhat restless, with no other acute findings. Lactate is shaji l at 1.4. Liver function studies are normal. PAST MEDICAL HISTORY: Remarkable for known coronary artery disease, systemic hypertension, hyperlip idemia, hypothyroidism on replacement, and anxiety. ALLERGIES: None known. SOCIAL HISTORY: The patient is , is a never smoker. Significant alcohol is negative. She a pparently splits her time between [place], [place], and [place], [place]. REVIEW OF SYSTEMS: Somewhat difficult to obtain right now. However, she denies lung disease, GI pr oblems, previous thromboembolic disease, etc. A 10-point review of systems is otherwise negative. PHYSICAL EXAMINATION: GENERAL: Reveals an elderly woman who is somewhat restless, lethargic, but a rousable and responsive. VITAL SIGNS: Current blood pressure is approximately 100/50, on dopamine. Heart rate is 110, with sinus rhythm on the monitor. She is on nasal cannula oxygen, with saturat ions of 94%. She is afebrile. HEENT: Unremarkable for lymphadenopathy or thyromegaly. Mucous mem branes are somewhat dry. There is no obvious jugular venous distention. CHEST: Clear anteriorly. Breath sounds are diminished at the bases. There are a few rales, right base greater than the left , with some dullness at the left base and some bronchial changes. No rhonchi are appreciated. HEAR T: Tachycardic. There is a soft systolic murmur, without obvious gallop. P2 is normal. ABDOMEN: Mildly distended and tender in the right side more so than the left. Mild rebound may be present. Bowel sounds are present, but diminished. There is no organomegaly. EXTREMITIES: Show trace plus edema bilaterally, with some ecchymoses on the left. No cords are appreciated. SKIN: Without андрей dence of cellulitis. NEUROLOGIC: Examination is intact. The patient moves all extremities and rep orts normal sensation. She is oriented to person and place. She recalls her surgery. She is somew hat lethargic, restless at times, but arousable. DATABASE: Cardiac echo and ultrasound are essentially negative, as outlined above. Chest x-ray shows evidence of left lower lobe atelectasis and/or infiltrate, with a probable effusio n on the left. Pneumonia obviously cannot be excluded. LABORATORY DATA: White blood cell count is approximately 11,000, hematocrit 26.3. Platelets are 16 6,000. Arterial blood gas shows a pH of 7.34, pCO2 of 33, and pO2 of 118. Serum bicarbonate is 18, with a base excess of -5. Lactate is 1.4. Sodium is 133, potassium 4.0, BUN 33, with a creatinine of 2.0. Glucose is 110. Calcium 8.3, with a magnesium of 2.1. Bilirubin and liver function studi es are normal. Serum albumin is 2.6. Amylase and lipase are normal. ASSESSMENT: 1. Hypotension. The cause for this is somewhat unclear at this time. Cardiac function post navarro ry artery bypass x3 appears to be excellent. If anything, hypovolemia may have played a role. Hypo tension may have resulted in some end-organ dysfunction, including bumping her creatinine from 1 to 2. However, urine output seems adequate at this time. This will need to be followed. A septic jerome nt could not be excluded. Sources could possibly include a left lower lobe pneumonia, possibly a no n-vascular source, or a urinary source. Cultures will be obtained and antibiotics empirically start ed for nosocomial organisms. Continued fluids will be given until she is clearly euvolemic. CVP wi ll be monitored if possible. Dopamine will be continued. Other pressors can be added if needed. B lood has also been ordered. 2. Coronary artery disease, status post 3-vessel coronary artery bypass grafting. Cardiac function appears to be intact. There is no evidence of an acute bleed, acute infarct or other issues. 3. Hypoxemia. She was apparently hypoxemic when her blood pressure was low. This has resolved. S he is on nasal cannula oxygen. Atelectasis/effusions and possibly an infiltrate may be contributing . 4. History of hypertension. 5. History of other medical problems, as outlined above. 6. Acute blood loss anemia. Please see the comments above. This is probably secondary to her surg jr and equilibration issues. Blood is being ordered. 7. Anticoagulation. She is on full-dose anticoagulation with Eliquis secondary to some postoperati ve atrial fibrillation, which is now resolved. PLAN AND RECOMMENDATIONS: The patient will be kept in the intensive care unit. Blood cultures and urine culture will be drawn. Antibiotics will be given: Zosyn and vancomycin. Doses will be adjus diana for renal failure. Intravenous fluids will be continued. CVP will be obtained, if possible. D opamine will be continued. Other pressors can be considered if needed. Laboratory and chest x-ray, as well as clinical status will be followed. Further plans and recommendations will be made based on her progress over the next 12-24 hours. /[id number]/MODL
[2017-02-22] MEDS: PRESERVISION AREDS2 FORMULA EYE VIT 1 EACH PO SCH (13:19)
[2017-02-22] MEDS: FERROUS SULFATE 325 MG TAB PO SCH (13:20)
[2017-02-22] MEDS ORDERED: AMIODARONE HCL 200 ML IV ONE (14:04)
[2017-02-22] MEDS ORDERED: AMIODARONE HCL 100 ML IV ONE (14:04)
--- NOTE | 2017-02-22 15:41 | CPEKG ---
Heart Rate: 80 RR Interval: 750 P-R Interval: 148 QRSD Interval: 82 QT Interval: 396 QTC Interval: 457 P [place]: 78 QRS [place]: 80 T Wave [place]: -78 EKG Severity - NORMAL ECG - EKG Impression: SINUS RHYTHM Electronically Signed By: Stiven Jose 23-Feb-2017 08:02:21
[2017-02-22] MEDS ORDERED: LIDOCAINE 2% JELLY 20 ML (UROJECT) ONE (19:20)
[2017-02-22] MEDS ORDERED: BISACODYL 10 MG SUPP PR PRN (20:14)
[2017-02-22] MEDS: ATORVASTATIN CALCIUM 10 MG TAB PO SCH (20:28)
[2017-02-22] MEDS ORDERED: FUROSEMIDE 40 MG/4 ML VIAL IVP ONE (20:30)
[2017-02-22] MEDS ORDERED: LIDOCAINE 2% JELLY 20 ML (UROJECT) UR ONE (20:30)
[2017-02-22] MEDS ORDERED: AMIODARONE HCL 540 MG in D5W 300 ML IV ONE (20:30)
[2017-02-22 20:40] LABS: COLOR YELLOW; LEUKOCYTE ESTERASE,URINE NEGATIVE (NEGATIVE); NITRITE,URINE NEGATIVE (NEGATIVE)
[2017-02-22 20:43] LABS: MUCUS TRACE /lpf (NONE-1+)
[2017-02-22] MEDS ORDERED: FUROSEMIDE 20 MG/2 ML VIAL IVP ONE (21:30)
[2017-02-22] MEDS ORDERED: POTASSIUM Cl (KCl) 20 MEQ/50 ML BAG IV ONE (21:47)
[2017-02-22] MEDS ORDERED: POTASSIUM Cl (KCl) 50 ML IV ONE (22:00)
[2017-02-22] MEDS: ACETAMINOPHEN 325 MG TAB PO PRN (22:49)
[2017-02-23] MEDS ORDERED: PROTOCOL POTASSIUM 1 DOSE MISC PRN (00:25)
[2017-02-23] MEDS ORDERED: POTASSIUM Cl (KCl) 50 ML IV ONE ×2 (00:58→21:25)
[2017-02-23] MEDS: PIPERACILLIN/TAZO 2.25 GM/DEX 50 ML IV SCH ×5 (00:59→23:47)
[2017-02-23] MEDS: ONDANSETRON 4 MG/2 ML VIAL IVP PRN (02:04)
[2017-02-23] MEDS: ACETAMINOPHEN 325 MG TAB PO PRN ×2 (03:02→23:54)
[2017-02-23 05:15] LABS: HEMATOCRIT 32.4 % (38.0-47.0); HEMOGLOBIN 10.9 g/dL (12.6-16.3); MEAN CELL HEMOGLOBIN 31.2 pg (27.9-34.1); MEAN CELL HEMOGLOBIN CONCENTR. 33.6 g/dL (32.4-36.7); MEAN CELL VOLUME 92.8 fL (81.5-99.8); RED BLOOD CELL COUNT 3.49 10^6/uL (4.18-5.33); RED CELL DISTRIBUTION WIDTH 18.5 % (11.5-15.2)
[2017-02-23 05:32] LABS: ANION GAP 11 mEq/L (8-16); CALCIUM 8.4 mg/dL (8.5-10.4); CARBON DIOXIDE 19 mEq/l (22-31); CHLORIDE 106 mEq/L (97-110); CREATININE 1.5 mg/dL (0.6-1.0); GLOMERULAR FILTRATION RATE 34; GLUCOSE 132 mg/dL (70-100); POTASSIUM 4.1 mEq/L (3.5-5.2); SODIUM 136 mEq/L (134-144)
[2017-02-23] MEDS: LEVOTHYROXINE 100 MCG TAB PO SCH (06:50)
--- NOTE | 2017-02-23 07:18 | SOAPPROG ---
SOAP Progress Note Assessment/Plan: Assessment: POD#6 CABGx3 (CARMICHAEL-LAD, SVG-Diag, SVG-OM), EVH left thigh Sx CAD/ISR with preserved LV systolic fx - s/p CABG. Postop course complicated by hypotensive episode yest w hypoxemia and mild acidosis. Transferred back to the ICU for further eval and supportive care. No evidence of PE, cardiac ischemia, valvular dysfx, pericardial effusion, acute bleed or infection. Relative hypovolemia, relative low BP (preop 150s-170s), probable LVDD, and end- organ malperfusion presumed. Clinical improvement on fluid and pressor support. Secondary prevention with ASA, statin, and BB when appropriate. Postop PAF - Onset POD#2, with RVR. SR restored on amio and inc BB but amio stopped d/t nausea and BB stopped d/t hold parameter. Amio gtt restarted for recurrent PAF on dopa and better tolerated. DOAC for [id number] score of 5. Postop KAYLA - Cr bump to 2 yest. Multifactorial - relative hypovolemia, borderline SBPs and NSAID use. Prompt improvement with IVF and pressor support. Follow. Acute blood loss anemia with thrombocytopenia and mild coagulopathy - Exacerbated by incomplete Plavix washout. Stable s/p 4u PRBC. Postop nausea - Impairing appetite and mobility early postop. Exacerbated by amio and narcs. LFTs ok. Toradol use compl by KAYLA. Hx HTN - Home management on ARB. Likely some LVDD. Postop control strategy relaxed to allow for renal recovery. Plan: Cont Eliquis 2.5 mg BID. Maintain CVP > 10, MAP 70-80. Transition IV amio to orals. No BB unless needed for rate control. Bolus lasix prn SBP > 150 if adequate CVP. Keep zafar overnoc for accurate I/Os. IV abx per ICU. ? US eval of left pl effusion for amenability to tap. Inc mobility and activity as tolerated. ADAT. Keep in ICU for 1 more day. Dispo - To SNF ([facility]) once medically stable. 02/23/17 07:17 9 Subjective: Awoken from deep sleep. Nonverbal (except to express surprise when touched with cold hand) but SUN, follows commands appropriately. Objective: Vital Signs Temp Pulse Resp BP Pulse Ox 36.8 C 89 23 H 161/78 H 95 02/22/17 21:00 02/23/17 06:00 02/23/17 06:00 02/23/17 06:00 02/23/17 06:00 Laboratory Results 02/23/17 05:10 02/23/17 05:10 02/22/17 02/23/17 02/24/17 05:59 05:59 05:59 Intake Total 1150 3505 Output Total 750 1325 Balance 400 2180 Renal dose Vanco and Zosyn pending cx results. Dopa 3 mcg yest for MAP > 75. Off by evening. Recurrent AF w VVR until off dopa. SR overnoc. Afeb. UA neg. Blood cxs pending. CXR-> increased (from small to moderate) left pl effusion, no infiltrate. Positive fluid balance. +7kg overall. Normalizing Cr. Physical Exam - Physical Exam General Appearance: no apparent distress (sleepy, only waking briefly when prompted) Respiratory: lungs clear (grossly (supine)) Cardiac/Chest: regular rate, rhythm, other (Sternum grossly stable. Sternotomy and LLE venotomy CDI) Abdomen: normal bowel sounds, non-tender, soft Skin: warm/dry Extremities: swelling (1+ generalized) ICD10 Worksheet Patient Problems: Problems Problem Status Onset KAYLA (acute kidney injury) Acute Acute blood loss as cause of postoperative anemia Acute Chronic Disease Mgmt/Transitional Care Acute Coronary stent restenosis due to progression of disease Acute Dyspnea Acute Elevated troponin Acute Platelet inhibition due to Plavix Acute Postoperative atrial fibrillation Acute S/P CABG x 3 Acute CAD in [place] artery Chronic
[2017-02-23] MEDS ORDERED: FUROSEMIDE 40 MG/4 ML VIAL IVP ONE (08:30)
[2017-02-23] MEDS: ASPIRIN 81 MG CHEWABLE TAB PO SCH (09:19)
[2017-02-23] MEDS: PANTOPRAZOLE SODIUM 40 MG TAB PO SCH (09:19)
[2017-02-23] MEDS: APIXABAN 2.5 MG TAB PO SCH ×2 (09:19→20:37)
[2017-02-23] MEDS ORDERED: VANCOMYCIN 1.25 GM in D5W 250 ML IV SCH (12:00)
[2017-02-23] MEDS: FUROSEMIDE 40 MG/4 ML VIAL IVP SCH ×2 (15:26→21:23)
[2017-02-23 15:57] LABS: POTASSIUM 3.8 mEq/L (3.5-5.2)
[2017-02-23] MEDS ORDERED: BUPIVACAINE 0.5% 30 ML SDV ONE (17:14)
--- NOTE | 2017-02-23 17:52 | PDINTPN ---
[facility] Progress Note Assessment/Plan: Assessment: Status post open heart surgery: Coronary artery bypass grafting for CAD Hypotension yesterday, associated with hypoxemia. Given fluids, started on antibiotics. Cause for her down turn not known. She does not have definite signs or symptoms of infection although is being covered with antibiotics. Not septic. Lactates were normal. No evidence of infection. She does have large pleural effusions. Pleural effusions, large, left greater than right History of systemic hypertension. Blood pressure is back to baseline, sometimes high Anticoagulation with Eliquis Plan: Continue antibiotics for now. Will do a left-sided thoracentesis today after the left chest is marked by ultrasound guidance. For studies but I think this will be consistent with a postoperative effusion. Continue care otherwise. Lasix diuresis when possible. All the above was discussed with the patient and her , the cardiovascular surgery team. Subjective: Feels better today, brighter. No specific complaints. Less fatigued. Some shortness of breath. Denies chest pain. Objective: Vital Signs Temp Pulse Resp BP Pulse Ox 37.2 C 106 H 32 H 171/113 H 99 02/23/17 16:00 02/23/17 17:00 02/23/17 17:00 02/23/17 17:00 02/23/17 17:00 Laboratory Results 02/23/17 05:10 02/23/17 15:14 02/22/17 02/23/17 02/24/17 05:59 05:59 05:59 Intake Total 1150 5505 124 Output Total 750 1325 1650 Balance 400 4180 -1526 CXR: Left lower lobe atelectasis an enlarging pleural effusion, haziness on right. Laboratory Tests 02/23/17 05:10 BUN 29 H Creatinine 1.5 H Physical Exam - Physical Exam General Appearance: alert, no apparent distress EENT: other (Nasal cannula 2 L) Neck: normal inspection (No obvious JVD) Respiratory: lungs clear (Anteriorly), decreased breath sounds (At both bases with dullness), rales (Few rales above), No rhonchi, No wheezing Cardiac/Chest: regular rate, rhythm Abdomen: non-tender, soft, No normal bowel sounds (Decreased, present) Skin: normal color, warm/dry Extremities: pedal edema Neuro/Psych: no motor/sensory deficits, No cognition abnormalities ICD10 Worksheet Patient Problems: Problems Problem Status Onset KAYLA (acute kidney injury) Acute Postoperative atrial fibrillation Acute 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
--- NOTE | 2017-02-23 17:57 | GPN ---
[f rep st] PROCEDURE NOTE PROCEDURE: Left-sided thoracentesis. REASON FOR PROCEDURE: Large left-sided pleural effusion. DESCRIPTION OF PROCEDURE: The procedure was done in the intensive care unit in the patient's room. The location of the pleural fluid was previously marked by transthoracic ultrasound. The skin was prepped with chlorhexidine via interspace 8-9 posterolaterally. Local anesthesia was accomplished w ith approximately 12 cc of 1% lidocaine. The thoracentesis catheter was advanced through the chest wall into the patient's pleural fluid herbert ection. The needle was removed. Only the catheter was left in the chest. Using negative pressure suction, approximately 1200 cc of slightly bloody serous fluid was removed from the chest without pr oblems. The patient had no pleurisy toward the end of the procedure. She did have some coughing. Appropriate studies were sent. A chest x-ray is pending at the time of this dictation. ASSESSMENT: Successful large-volume thoracentesis from the left side. /[id number]/MODL
[2017-02-23 18:31] LABS: POTASSIUM 3.7 mEq/L (3.5-5.2)
[2017-02-23] MEDS: ATORVASTATIN CALCIUM 10 MG TAB PO SCH (20:37)
[2017-02-23 20:54] LABS: LD, PLEURAL FLUID 1197 IU/L
[2017-02-23] MEDS ORDERED: AMIODARONE HCL 200 MG TAB PO SCH (21:00)
[2017-02-24 03:53] LABS: HEMATOCRIT 33.1 % (38.0-47.0); HEMOGLOBIN 11.2 g/dL (12.6-16.3); MEAN CELL HEMOGLOBIN 31.5 pg (27.9-34.1); MEAN CELL HEMOGLOBIN CONCENTR. 33.8 g/dL (32.4-36.7); MEAN CELL VOLUME 93.2 fL (81.5-99.8); RED BLOOD CELL COUNT 3.55 10^6/uL (4.18-5.33); RED CELL DISTRIBUTION WIDTH 17.8 % (11.5-15.2)
[2017-02-24 04:09] LABS: ANION GAP 10 mEq/L (8-16); CALCIUM 8.3 mg/dL (8.5-10.4); CARBON DIOXIDE 27 mEq/l (22-31); CHLORIDE 103 mEq/L (97-110); CREATININE 0.9 mg/dL (0.6-1.0); GLOMERULAR FILTRATION RATE > 60; GLUCOSE 121 mg/dL (70-100); POTASSIUM 3.7 mEq/L (3.5-5.2); SODIUM 140 mEq/L (134-144)
[2017-02-24] MEDS: LEVOTHYROXINE 100 MCG TAB PO SCH (05:47)
[2017-02-24] MEDS: PIPERACILLIN/TAZO 2.25 GM/DEX 50 ML IV SCH (05:47)
--- NOTE | 2017-02-24 07:56 | SOAPPROG ---
SOAP Progress Note Assessment/Plan: POD# 7: CABGx3 (CARMICHAEL-LAD, SVG-Diag, SVG-OM), EVH L thigh Hypotension with acidosis and AMS - Clinical improvement with pressor/volume support - Transfer to PCU today CAD with associated SOB s/p CABGx3 - BB/ASA/statin - SCDs/Eliquis for DVT prophylaxis - PT for ambulation Acute blood loss anemia with thrombocytopenia/dysfunctional platelets d/t Plavix use - Stable s/p 4U PRBC Paroxysmal AF with RVR - Conversion to SR with BB/amiodarone. Amiodarone since stopped d/t nausea. Continue BB and Eliquis BID. HTN - pre-op SBP in 170s - Management when appropriate (> 150s) KAYLA, pre-renal - Resolved s/p fluid administration Subjective: Feels better this AM. No pain, SOB. Objective: Vital Signs Temp Pulse Resp BP Pulse Ox 36.8 C 137 H 25 H 150/90 H 96 02/24/17 04:00 02/24/17 04:00 02/24/17 04:00 02/24/17 04:00 02/24/17 04:00 Microbiology 02/23/17 17:53 Gram Stain - Final Pleural Fluid - Other Laboratory Results 02/24/17 03:44 02/24/17 03:44 02/23/17 02/24/17 02/25/17 05:59 05:59 05:59 Intake Total 5505 1464 Output Total 1325 5600 Balance 4180 -4136 Physical Exam - Physical Exam General Appearance: WD/WN, alert, no apparent distress EENT: normal ENT inspection Neck: normal inspection Respiratory: No respiratory distress Cardiac/Chest: regular rate, rhythm, irregularly irregular Abdomen: non-tender, soft, No distended Skin: normal color, warm/dry Extremities: No pedal edema Neuro/Psych: no motor/sensory deficits, alert, normal mood/affect, oriented x 3 ICD10 Worksheet Patient Problems: Problems Problem Status Onset KAYLA (acute kidney injury) Acute Acute blood loss as cause of postoperative anemia Acute Chronic Disease Mgmt/Transitional Care Acute Coronary stent restenosis due to progression of disease Acute Dyspnea Acute Elevated troponin Acute Platelet inhibition due to Plavix Acute Postoperative atrial fibrillation Acute S/P CABG x 3 Acute CAD in [place] artery Chronic
[2017-02-24] MEDS ORDERED: POTASSIUM Cl (KCl) 50 ML IV ONE (08:36)
[2017-02-24] MEDS ORDERED: METOPROLOL TARTRATE 25 MG TAB PO SCH (09:00)
[2017-02-24] MEDS: APIXABAN 2.5 MG TAB PO SCH ×2 (10:02→20:45)
[2017-02-24] MEDS: ASPIRIN 81 MG CHEWABLE TAB PO SCH (10:02)
[2017-02-24] MEDS: PANTOPRAZOLE SODIUM 40 MG TAB PO SCH (10:02)
--- NOTE | 2017-02-24 11:33 | PDINTPN ---
[employer] Progress Note Assessment/Plan: Assessment: Status post open heart surgery: Coronary artery bypass grafting for CAD Hypotension5/3, associated with hypoxemia. Given fluids, started on antibiotics. Cause for her down-turn not clear, and changes have essentially resolved. She is now doing well. Pleural effusions, large, left greater than right. Status post large volume thoracentesis yesterday on the left. Today's chest x-ray looks better, even on the right, without evidence of an increasing right-sided pleural effusion. No definite indication for thoracentesis on the right today. History of systemic hypertension. Blood pressure is back to baseline, sometimes high Anticoagulation with Eliquis Volume overload: Remains 5 kilos up compared to baseline weight, Plan: Continue present care. Increase mobilization as tolerated. Recommend continued Lasix diuresis watching blood pressure and renal function. I will leave this up to cardiovascular surgery. I will repeat x-ray tomorrow: Two- view. All the above was discussed with the patient and her , CHULA. Subjective: Feels much better. Up walking in the halls. Denies significant shortness of breath. No chest pain. Objective: Vital Signs Temp Pulse Resp BP Pulse Ox 36.4 C 86 19 162/92 H 92 02/24/17 08:00 02/24/17 08:00 02/24/17 08:00 02/24/17 08:00 02/24/17 09:33 Microbiology 02/23/17 17:53 Gram Stain - Final Pleural Fluid - Other Laboratory Results 02/24/17 03:44 02/24/17 03:44 02/23/17 02/24/17 02/25/17 05:59 05:59 05:59 Intake Total 5505 1464 Output Total 1325 5600 Balance 4180 -4136 Microbiology 02/23/17 17:53 Pleural Fluid - Other Gram Stain - Final. No organism seen Laboratory Tests 02/23/17 17:00 Pleural Color RED H Pleural Appearance CLOUDY H Pleural WBC 862 Pleural RBC [id number] Pleural Neutrophils 30 Pleural LDH 1197 Pleural Glucose 124 H CXR: significantly improved on both sides regarding pleural effusions. As long as I am in town Physical Exam - Physical Exam General Appearance: alert, no apparent distress EENT: other (Nasal cannula at 1-2 L) Neck: normal inspection (No JVD) Respiratory: lungs clear (Anteriorly), decreased breath sounds (Bilaterally), rales (Present at bases), other (Some dullness on right but not marked.) Cardiac/Chest: regular rate, rhythm, irregularly irregular (AFib alternating with sinus) Abdomen: normal bowel sounds, non-tender, soft Skin: normal color, warm/dry Extremities: pedal edema (1+) Neuro/Psych: no motor/sensory deficits, No cognition abnormalities ICD10 Worksheet Patient Problems: Problems Problem Status Onset KAYLA (acute kidney injury) Acute Acute blood loss as cause of postoperative anemia Acute Chronic Disease Mgmt/Transitional Care Acute Coronary stent restenosis due to progression of disease Acute Dyspnea Acute Elevated troponin Acute Platelet inhibition due to Plavix Acute Postoperative atrial fibrillation Acute S/P CABG x 3 Acute CAD in [place] artery Chronic
[2017-02-24] MEDS: METOPROLOL TARTRATE 25 MG TAB PO SCH (20:45)
[2017-02-24] MEDS: ATORVASTATIN CALCIUM 10 MG TAB PO SCH (20:45)
[2017-02-24] MEDS: CEPACOL LOZENGE PO PRN (21:28)
[2017-02-24] MEDS: ACETAMINOPHEN 325 MG TAB PO PRN (23:50)
[2017-02-25] MEDS: CEPACOL LOZENGE PO PRN ×3 (03:30→19:58)
[2017-02-25 05:30] LABS: ANION GAP 9 mEq/L (8-16); CALCIUM 8.8 mg/dL (8.5-10.4); CARBON DIOXIDE 26 mEq/l (22-31); CHLORIDE 105 mEq/L (97-110); CREATININE 0.7 mg/dL (0.6-1.0); GLOMERULAR FILTRATION RATE > 60; GLUCOSE 114 mg/dL (70-100); POTASSIUM 3.8 mEq/L (3.5-5.2); SODIUM 140 mEq/L (134-144)
[2017-02-25] MEDS: LEVOTHYROXINE 100 MCG TAB PO SCH (06:32)
--- NOTE | 2017-02-25 07:52 | SOAPPROG ---
SOAP Progress Note Assessment/Plan: Assessment: POD#8 CABGx3 (CARMICHAEL-LAD, SVG-Diag, SVG-OM), EVH left thigh POD#2 left thoracentesis 1200 ml Sx CAD/ISR with preserved LV systolic fx - s/p CABG. Postop course complicated by hypotensive episode on POD#5 w hypoxemia and mild acidosis. Transferred back to the ICU for further eval and supportive care. No evidence of PE, cardiac ischemia, valvular dysfx, pericardial effusion, acute bleed or infection. Relative hypovolemia, relative low BP (preop 150s-170s), probable LVDD, and end- organ malperfusion presumed. Clinical improvement on fluid and pressor support. Secondary prevention with ASA, statin, and BB as tolerated. Postop PAF - Onset POD#2, with RVR. SR restored on amio and inc BB but amio stopped d/t nausea. BB dosed as allowed by BP. Cont in and out of AF with VVR, occ RVR, and incremental BB dosing in progress. DOAC for [id number] score of 5. Postop KAYLA - Cr bump to 2 on POD#5. Multifactorial - relative hypovolemia, borderline SBPs and NSAID use. Resolved with IVF, temporary pressor support and then permissive HTN. Acute blood loss anemia with thrombocytopenia and mild coagulopathy - Exacerbated by incomplete Plavix washout. Stable s/p 4u PRBC. H/H > 10/32 maintained. Postop nausea - Resolved with discontinuation of amio. Hx HTN - Home management on ARB. Likely some LVDD. Postop control strategy relaxed to allow for renal recovery. Plan: Cont Eliquis 2.5 mg BID. Inc metoprolol to 50 mg BID. Restart ARB. 25 mg daily for now. Lasix 20 mg daily. Cont inc activity as tolerated. Dispo - Home once medically stable. 02/25/17 07:50 Subjective: Doing ok. Tolerating light activity without difficulty. Unaware of palpitations. Eager to go home. Objective: Vital Signs Temp Pulse Resp BP Pulse Ox 36.7 C 91 23 H 173/104 H 97 02/25/17 03:30 02/25/17 03:30 02/25/17 03:30 02/25/17 03:30 02/25/17 03:30 Microbiology 02/23/17 17:53 Gram Stain - Final Pleural Fluid - Other Laboratory Results 02/24/17 03:44 02/25/17 03:51 02/24/17 02/25/17 02/26/17 05:59 05:59 05:59 Intake Total 1464 825 Output Total 5600 1425 Balance -4136 -600 SR w occ PAF. Ongoing upward creep in SBP. Min suppl O2 needs. CXR-> small residual left pl eff, no pulm vasc congestion. Adequate I/Os. Stable labs. Physical Exam - Physical Exam General Appearance: alert, no apparent distress Respiratory: lungs clear Cardiac/Chest: irregularly irregular (PACs, bursts of AF), other (Sternum grossly stable. Sternotomy and LLE venotomy CDI) Abdomen: non-tender, soft Skin: warm/dry Extremities: swelling (1+) ICD10 Worksheet Patient Problems: Problems Problem Status Onset KAYLA (acute kidney injury) Acute Acute blood loss as cause of postoperative anemia Acute Chronic Disease Mgmt/Transitional Care Acute Coronary stent restenosis due to progression of disease Acute Dyspnea Acute Elevated troponin Acute Platelet inhibition due to Plavix Acute Postoperative atrial fibrillation Acute S/P CABG x 3 Acute CAD in [place] artery Chronic
[2017-02-25] MEDS: ASPIRIN 81 MG CHEWABLE TAB PO SCH (08:23)
[2017-02-25] MEDS: APIXABAN 2.5 MG TAB PO SCH ×2 (08:23→19:59)
[2017-02-25] MEDS: PANTOPRAZOLE SODIUM 40 MG TAB PO SCH (08:24)
[2017-02-25] MEDS: METOPROLOL TARTRATE 25 MG TAB PO SCH (08:24)
[2017-02-25] MEDS ORDERED: LOSARTAN POTASSIUM 25 MG TAB PO SCH (09:00)
[2017-02-25] MEDS ORDERED: POTASSIUM CL 10 MEQ TAB PO ONE (09:22)
[2017-02-25] MEDS: METOPROLOL TARTRATE 5 MG/5 ML INJ IVP SCH ×2 (11:33→11:51)
[2017-02-25] MEDS: FUROSEMIDE 20 MG TAB PO SCH (12:55)
[2017-02-25] MEDS ORDERED: AMIODARONE HCL 100 ML IV ONE (14:41)
[2017-02-25] MEDS: METOPROLOL TARTRATE 50 MG TAB PO SCH (19:58)
[2017-02-25] MEDS: ATORVASTATIN CALCIUM 10 MG TAB PO SCH (19:59)
[2017-02-25] MEDS: ACETAMINOPHEN 325 MG TAB PO PRN (20:01)
[2017-02-26] MEDS: LEVOTHYROXINE 100 MCG TAB PO SCH (06:11)
[2017-02-26] MEDS: ASPIRIN 81 MG CHEWABLE TAB PO SCH (07:49)
[2017-02-26] MEDS: FUROSEMIDE 20 MG TAB PO SCH (07:49)
[2017-02-26] MEDS: PANTOPRAZOLE SODIUM 40 MG TAB PO SCH (07:51)
[2017-02-26] MEDS: APIXABAN 2.5 MG TAB PO SCH ×2 (07:51→20:09)
[2017-02-26] MEDS: METOPROLOL TARTRATE 50 MG TAB PO SCH ×2 (07:52→20:10)
--- NOTE | 2017-02-26 08:27 | SOAPPROG ---
SOAP Progress Note Assessment/Plan: Assessment: POD#8 CABGx3 (CARMICHAEL-LAD, SVG-Diag, SVG-OM), EVH left thigh POD#3 left thoracentesis 1200 ml Sx CAD/ISR with preserved LV systolic fx - s/p CABG. Postop course complicated by hypotensive episode on POD#5 w hypoxemia and mild acidosis. Transferred back to the ICU for further eval and supportive care. No evidence of PE, cardiac ischemia, valvular dysfx, pericardial effusion, acute bleed or infection. Relative hypovolemia, relative low BP (preop 150s-170s), probable LVDD, and end- organ malperfusion presumed. Clinical improvement on fluid and pressor support. Secondary prevention with ASA, statin, and BB as tolerated. Postop PAF - Onset POD#2, with RVR. SR restored on amio and inc BB but amio stopped d/t nausea. BB dosed as allowed by BP. Cont in and out of AF with VVR, occ RVR, and incremental BB dosing in progress. DOAC for [id number] score of 5. Postop KAYLA - Cr bump to 2 on POD#5. Multifactorial - relative hypovolemia, borderline SBPs and NSAID use. Resolved with IVF, temporary pressor support and then permissive HTN. Acute blood loss anemia with thrombocytopenia and mild coagulopathy - Exacerbated by incomplete Plavix washout. Stable s/p 4u PRBC. H/H > 10/32 maintained. Postop nausea - Resolved with discontinuation of amio. Hx HTN - Home management on ARB. Likely some LVDD. Postop control strategy relaxed to allow for renal recovery. Plan: Inc Losartan to 50 mg daily. Cont Metoprolol 50 mg BID. Addtl 25 mg prn rapid AF. Cont daily diuresis. Wean O2. Ck stool for cdiff. Dispo - Home when rhythm and BP controlled. 02/26/17 08:25 Subjective: Cont to struggle with generalized fatigue and sensation restricted breathing. Some loose stools. Objective: Vital Signs Temp Pulse Resp BP Pulse Ox 36.6 C 81 19 172/99 H 91 L 02/26/17 06:00 02/26/17 06:00 02/26/17 06:00 02/26/17 06:00 02/26/17 06:00 Microbiology 02/23/17 17:53 Gram Stain - Final Pleural Fluid - Other Body Fluid Culture - Final Laboratory Results 02/24/17 03:44 02/25/17 03:51 02/25/17 02/26/17 02/27/17 05:59 05:59 05:59 Intake Total 825 1000 Output Total 1425 3650 Balance -600 -2650 Addtl IV BB and amio yest pm for RVR. SBPs predom > 150. Rhythm overnoc mostly sinus w PACs but still episodic PAF with RVR. Improving I/Os. Nearing baseline wt. Almost off O2. Physical Exam - Physical Exam General Appearance: alert, no apparent distress Respiratory: lungs clear, prolonged expiration Cardiac/Chest: regular rate, rhythm, other (Sternum grossly stable. Sternotomy and LLE venotomy CDI.) Abdomen: non-tender, soft Skin: warm/dry Extremities: swelling (trace - 1+) ICD10 Worksheet Patient Problems: Problems Problem Status Onset KAYLA (acute kidney injury) Acute Acute blood loss as cause of postoperative anemia Acute Chronic Disease Mgmt/Transitional Care Acute Coronary stent restenosis due to progression of disease Acute Dyspnea Acute Elevated troponin Acute Platelet inhibition due to Plavix Acute Postoperative atrial fibrillation Acute S/P CABG x 3 Acute CAD in [place] artery Chronic
[2017-02-26] MEDS ORDERED: LOSARTAN POTASSIUM 50 MG TAB PO SCH (09:00)
[2017-02-26] MEDS ORDERED: NITROGLYCERIN 0.4 MG BTL SL PRN (09:32)
[2017-02-26 09:49] LABS: POTASSIUM 3.6 mEq/L (3.5-5.2)
[2017-02-26] MEDS ORDERED: IPRATROPIUM/ALBUTEROL 3 ML DEYVIAL IH PRN (11:43)
[2017-02-26] MEDS ORDERED: POTASSIUM CL 20 MEQ TAB PO ONE ×2 (12:00→14:00)
[2017-02-26] MEDS ORDERED: FUROSEMIDE 40 MG/4 ML VIAL IVP ONE (14:00)
[2017-02-26] MEDS ORDERED: METOPROLOL TARTRATE 50 MG TAB PO ONE ×2 (14:00)
[2017-02-26] MEDS ORDERED: CETACAINE SPRAY 20 GM TP ONE (14:01)
[2017-02-26] MEDS: CEPACOL LOZENGE PO PRN ×2 (14:23→21:12)
[2017-02-26] MEDS: CETIRIZINE 10 MG TAB PO SCH (14:23)
[2017-02-26] MEDS: PHENOL 177 ML THROAT SPRAY PO PRN ×3 (15:27→21:11)
[2017-02-26] MEDS: ATORVASTATIN CALCIUM 10 MG TAB PO SCH (20:09)
[2017-02-26] MEDS: DILTIAZEM CD 180 MG CAP PO SCH (22:40)
[2017-02-27] MEDS: ACETAMINOPHEN 325 MG TAB PO PRN ×2 (03:44→07:39)
[2017-02-27 04:02] LABS: MEAN CELL HEMOGLOBIN 31.5 pg (27.9-34.1); MEAN CELL HEMOGLOBIN CONCENTR. 33.3 g/dL (32.4-36.7); MEAN CELL VOLUME 94.4 fL (81.5-99.8); RED BLOOD CELL COUNT 4.45 10^6/uL (4.18-5.33); RED CELL DISTRIBUTION WIDTH 17.8 % (11.5-15.2)
[2017-02-27 04:20] LABS: ANION GAP 7 mEq/L (8-16); CALCIUM 9.2 mg/dL (8.5-10.4); CARBON DIOXIDE 29 mEq/l (22-31); CHLORIDE 102 mEq/L (97-110); CREATININE 0.8 mg/dL (0.6-1.0); GLOMERULAR FILTRATION RATE > 60; GLUCOSE 116 mg/dL (70-100); POTASSIUM 4.1 mEq/L (3.5-5.2); SODIUM 138 mEq/L (134-144)
[2017-02-27] MEDS: LEVOTHYROXINE 100 MCG TAB PO SCH (06:38)
[2017-02-27] MEDS: ASPIRIN 81 MG CHEWABLE TAB PO SCH (07:41)
[2017-02-27] MEDS: CETIRIZINE 10 MG TAB PO SCH (07:41)
[2017-02-27] MEDS: APIXABAN 2.5 MG TAB PO SCH (07:41)
[2017-02-27] MEDS: DILTIAZEM CD 180 MG CAP PO SCH (07:41)
[2017-02-27] MEDS: METOPROLOL TARTRATE 50 MG TAB PO SCH (07:42)
[2017-02-27] MEDS ORDERED: POTASSIUM CL 20 MEQ TAB PO ONE (08:22)
[2017-02-27] MEDS ORDERED: FUROSEMIDE 100 MG/10 ML VIAL IVP ONE (08:23)
[2017-02-27 08:26] VITALS: RESP 19
--- NOTE | 2017-02-27 08:26 | SOAPPROG ---
SOAP Progress Note Assessment/Plan: Assessment: POD#9 CABGx3 (CARMICHAEL-LAD, SVG-Diag, SVG-OM), EVH left thigh POD#4 left thoracentesis 1200 ml Sx CAD/ISR with preserved LV systolic fx - s/p CABG. Postop course complicated by hypotensive episode on POD#5 w hypoxemia and mild acidosis. Transferred back to the ICU for further eval and supportive care. No evidence of PE, cardiac ischemia, valvular dysfx, pericardial effusion, acute bleed or infection. Relative hypovolemia, relative low BP (preop 150s-170s), probable LVDD, and end- organ malperfusion presumed. Clinical improvement on fluid and pressor support. Secondary prevention with ASA, statin, and BB as tolerated. Postop PAF - Onset POD#2, with RVR. SR restored on amio and inc BB but amio stopped d/t nausea. BB dosed as allowed by BP. Cont in and out of AF with VVR, occ RVR, and CCB added regimen. DOAC for [id number] score of 5. Postop KAYLA - Cr bump to 2 on POD#5. Multifactorial - relative hypovolemia, borderline SBPs and NSAID use. Resolved with IVF, temporary pressor support and then permissive HTN. Acute blood loss anemia with thrombocytopenia and mild coagulopathy - Exacerbated by incomplete Plavix washout. Stable s/p 4u PRBC. H/H > 10/32 maintained. Postop nausea - Resolved with discontinuation of amio. Hx HTN - Home management on ARB. Likely some LVDD. Postop control strategy relaxed to allow for renal recovery. Plan: Inc diltiazem XR to 240 mg daily. Resume Losartan 100 mg daily. Cont Metoprolol 50 mg BID. Addtl 25 mg prn rapid AF. Intensify diuresis. Dispo - Home later today if rhythm and BP controlled. 02/27/17 08:24 Subjective: Feels well. Tolerating light activity without difficulty. Bowels firming up. Desperate to go home. Objective: Vital Signs Temp Pulse Resp BP Pulse Ox 36.4 C 88 17 170/85 H 91 L 02/26/17 23:45 02/27/17 03:45 02/27/17 03:45 02/27/17 03:45 02/27/17 03:45 Microbiology 02/26/17 11:15 Gastrointestinal Tract Panel (PCR) - Final Stool No Organism Detected Laboratory Results 02/27/17 03:51 02/27/17 03:51 02/26/17 02/27/17 02/28/17 05:59 05:59 05:59 Intake Total 1000 975 Output Total 3650 3900 Balance -2650 -2925 SR with short bouts of AF. CCB started last noc and RVR bouts less freq. BP remains elev. Vigorous diuresis cont. Now below preop wt. Labs ok. Stool neg for cdiff. CXR perplexing-> inc interstitial edema, sm bilat pl eff L>R Physical Exam - Physical Exam General Appearance: alert, no apparent distress Respiratory: lungs clear Cardiac/Chest: regular rate, rhythm, other (Sternum grossly stable. Sternotomy and LLE venotomy CDI) Abdomen: non-tender, soft Skin: warm/dry Extremities: swelling (trace-1+ dependent) ICD10 Worksheet Patient Problems: Problems Problem Status Onset KAYLA (acute kidney injury) Acute Postoperative atrial fibrillation Acute Coronary stent restenosis due to progression of disease Acute CAD in [place] artery Chronic Platelet inhibition due to Plavix Acute Acute blood loss as cause of postoperative anemia Acute S/P CABG x 3 Acute Chronic Disease Mgmt/Transitional Care Acute Dyspnea Acute Elevated troponin Acute
[2017-02-27] MEDS ORDERED: LOSARTAN POTASSIUM 50 MG TAB PO SCH (09:00)
[2017-02-27] MEDS ORDERED: TORSEMIDE 20 MG TAB PO SCH (10:00)
[2017-02-27 11:14] VITALS: BP 154/88; PULSE 111; TEMP 98; O2SAT 92
--- NOTE | 2017-02-27 16:31 | PDDCSUM ---
Discharge Summary Discharge Summary: DATE OF ADMISSION: 02/14/17 DATE OF DISCHARGE: 02/27/17 DISPOSITION: Home, self-care PRINCIPAL ADMISSION DIAGNOSIS: Exertional dyspnea with left arm pain PRINCIPAL DISCHARGE DIAGNOSES: 1. Progressive coronary artery disease with instent restenosis of LAD. 2. Hypertensive heart disease. 3. Status post coronary artery bypass grafting x 3. 4. Acute expected blood loss anemia. 5. Acute diastolic congestive heart failure with left pleural effusion. 6. Acute kidney injury. 7. Postoperative paroxysmal atrial fibrillation. HISTORY OF PRESENT ILLNESS: 76 yo female with multiple layered stents in her LAD system evaluated for a 1 wk hx of exertional breathlessness with intermittent left arm heaviness and found to have severe ISR of the proximal LAD as well as new obstructive disease in the mid LAD, principal diagonal, and proximal LCX. No assoc LVSD, valvular dysfx, CHF, arrhythmias or prohibitive neurologic risk. Referred for surgical revascularization after Plavix washout on a heparin drip. No interim chest pain , shortness of breath, or hemodynamic instability. PAST MEDICAL HISTORY: 1. CAD - s/p 6 LAD stents between the ages of 61 and 72. Maintained on DAPT. 2. HTN 3. Hyperlipidemia 4. Hypothyroidism 5. Obesity 6. Labyrinthitis MEDICATIONS ON ADMISSION: ASA 81 mg hs, Plavix 75 mg daily, Zocor 20 mg hs, Niacin ER 2,000 mg hs, Losartan 100 mg hs, Synthroid 100 mcg daily, Nitrostat 0.4 mg SL AD prn, B12/ Levomefolate calcium/B6 tablet daily, Ativan 1 mg hs prn, Preservision softgel capsule BID, meclizine 25 mg daily prn, Zyrtec 10 mg daily prn. ALLERGIES/SENSITIVITIES: NKDA CONSULTANTS: CV surgery (Rosaura), Cardiology (Malcom), Pulmonology/critical care (Bry) PROCEDURES/IMAGIN/25 (Malcom): Exercise stress test with nuclear myocardial perfusion imaging. 02/14 (Malcom): Left heart catheterization with selective coronary angiography and left ventriculogram. 02/15 Carotid ultrasound. 02/17 (Rosaura): Coronary artery bypass grafting x (CARMICHAEL-LAD, SV-D1, SV-OM1). Takedown CARMICHAEL. Endoscopic vein harvesting LLE. 02/22 (Edinson): Transthoracic echocardiogram. 02/22 Venous duplex and doppler ultrasound of bilateral legs. 02/[address] 02/23 (Bry): Ultrasound guided left thoracentesis. ABBREVIATED HOSPITAL COURSE BY ACTIVE PROBLEM LIST: 1. Sx CAD/ISR with preserved LV systolic fx - s/p CABG. Postop course complicated by hypotensive episode on POD#5 w hypoxemia, mild acidosis and moderate sized left pleural effusion. Transferred back to the ICU for further eval and supportive care. No evidence of PE, cardiac ischemia, valvular dysfx, pericardial effusion, acute bleed or infection. Relative hypovolemia, relative low BP (preop 150s-170s), probable LVDD/dCHF, and end-organ malperfusion ( transient KAYLA) presumed. Clinical improvement with IVF, pressor support and left thoracentesis. Secondary prevention with ASA, statin, and BB as tolerated. Plavix discontinued. 2. Postop PAF - Onset POD#2, with RVR. SR restored on amio and inc BB but amio stopped d/t nausea. BB dosed as allowed by BP. CCB added for episodic AF with VVR, and spurts of RVR. DOAC for [id number] score of 5. 3. Acute blood loss anemia with thrombocytopenia and mild coagulopathy - Exacerbated by incomplete Plavix washout. Stable s/p 4u PRBC. H/H > 10/32 maintained. 4. HTN - Home management on ARB. Postop hemodynamics, CHF and AF suggestive of significant hypertensive heart disease. DISCHARGE CLINICAL INFORMATION: Sternum grossly stable. Sternotomy and LLE venotomy CDI, sutured, +Dermabond. HR 80s. SBP 130-150s. SpO2 90-92% room air. Wt 0.2 kg below admission at 79.7 kilos. Hgb 14, HCT 42, Plt 292, Na 138, K 4.1, Cr 0.8 DISCHARGE MEDICATIONS: As on admission with the following adjustments: Discontinue Plavix. NEW prescriptions: 1. Eliquis 2.5 mg BID. 2. Metoprolol tartrate 50 mg BID. 3. Dilacor XR 240 daily. 3. Torsemide 20 mg daily. 4. Tramadol 50 mg q 8h prn incisional discomfort. FOLLOW UP APPOINTMENTS: 1. CV surgery: with Dr Flowers at [facility] on 03/03 at 11am. 2. Cardiology: with Dr Arredondo at [facility] within 4-6 weeks. Appointment to be established during surgical visit. FOLLOW UP TESTING: CXR and BMP prior to surgical appointment.
[2017-02-28] MEDS ORDERED: DILTIAZEM XR 240 MG CAP PO SCH (09:00)
== END 2017-02-27 17:45 | disposition home or self-care (01) | DRG 233 ==
LOC: F2W 19:57 → OBSVTOIN 02-14 15:36 → F2N 02-17 12:52 → F2W 02-18 13:27 → F2N 02-22 09:49 → F2W 02-24 14:00
PROVIDERS: ADMIT Internal Medicine; ATTEND Thoracic Surgery (Cardiothoracic Vascular Surgery)
PROC: 4A023N7 Measurement of Cardiac Sampling and Pressure, Left Heart, Percutaneous Approach (ICD-10-PCS; 2017-02-14)
PROC: B2111ZZ Fluoroscopy of Multiple Coronary Arteries using Low Osmolar Contrast (ICD-10-PCS; 2017-02-14)
PROC: B2151ZZ Fluoroscopy of Left Heart using Low Osmolar Contrast (ICD-10-PCS; 2017-02-14)
PROC: 30233N1 Transfusion of Nonautologous Red Blood Cells into Peripheral Vein, Percutaneous Approach (ICD-10-PCS; 2017-02-14)
PROC: 02100Z9 Bypass Coronary Artery, One Artery from Left Internal Mammary, Open Approach (ICD-10-PCS; principal; 2017-02-17 13:00)
PROC: 5A1221Z Performance of Cardiac Output, Continuous (ICD-10-PCS; principal; 2017-02-17 13:00)
PROC: 06BQ3ZZ Excision of Left Saphenous Vein, Percutaneous Approach (ICD-10-PCS; principal; 2017-02-17 13:00)
PROC: 0W9B3ZZ Drainage of Left Pleural Cavity, Percutaneous Approach (ICD-10-PCS; 2017-02-23)
DX: I25.119 Atherosclerotic heart disease of native coronary artery with unspecified angina pectoris (principal); T82.855A Stenosis of coronary artery stent, initial encounter; I50.31 Acute diastolic (congestive) heart failure; D62 Acute posthemorrhagic anemia; N17.9 Acute kidney failure, unspecified; I48.0 Paroxysmal atrial fibrillation; J90 Pleural effusion, not elsewhere classified; I95.9 Hypotension, unspecified; R11.0 Nausea; E03.9 Hypothyroidism, unspecified; E78.5 Hyperlipidemia, unspecified; I10 Essential (primary) hypertension; E66.9 Obesity, unspecified; Z68.29 Body mass index [BMI] 29.0-29.9, adult
CPT/HCPCS: 82947-QW; 85520-90; 97110-GP; 97116-GP; 97161-GP; 97165-GO; 97530-GO; 97530-GP; 97535-GO; G0378; G8978-GP-CL; G8979-GP-CI; G8980-GP-CI; G8987-GO-CL; G8988-GO-CI; J0153; J0282; J0690; J1265; J1644; J1650; J1815; J1885; J2001; J2150; J2250; J2260; J2370; J2405; J2440; J2543; J2704; J2720; J2785; J2930; J3010; J3370; J7060; P9016; P9021; P9041; Q9967

== ENCOUNTER → 2017-03-03 | Outpatient (CLI) | payer OTHER | LOC: FIMAGING 10:01 | PROVIDERS: ATTEND Thoracic Surgery (Cardiothoracic Vascular Surgery) | DX: J98.11 Atelectasis (principal); Z98.890 Other specified postprocedural states; Z95.1 Presence of aortocoronary bypass graft ==

== ENCOUNTER 2017-03-05 09:39 | Emergency (ER) | payer OTHER ==
--- NOTE | 2017-03-05 09:49 | EDPHY ---
H & P HPI/ROS: CHIEF COMPLAINT: Lightheaded, dizzy HISTORY OF PRESENT ILLNESS: Patient is a 76-year-old female who presents to the emergency department via EMS from rehab. Patient was admitted to the hospital on 02/14/2017 and underwent CABG x3. Per the patient's report, she was discharged home. She accidentally took too many sleeping pills and fell. She was subsequently placed in cardiac rehab. Today she felt lightheaded and dizzy. They checked her blood pressure and stated it was low. She was also reported to be tachycardic. EMS arrived and found patient's symptoms resolved. The patient had no lightheadedness or dizziness. She had normal vital signs per EMS report. REVIEW OF SYSTEMS: My complete review of systems is negative except as mentioned in the HPI. Past Medical/Surgical History: Includes coronary artery disease, hypertensive heart disease, anemia, CHF, acute kidney injury, paroxysmal atrial fibrillation, hyperlipidemia, hypothyroidism, obesity, labyrinthitis Past surgical history: Includes CABG Social: The patient does not smoke or use alcohol. She is . Smoking Status: Never smoked Physical Exam: Vitals noted. 118/87, 64, 99% on room air, 36.7 GENERAL: Well-appearing, in no acute distress, alert. HEENT: Eyes normal to inspection, normal pharynx, no signs of dehydration. Patient has an old bruising on her left brow. There is a Steri-Strip in place. NECK: No thyromegaly, no lymphadenopathy, supple. No spinal tenderness to palpation. RESPIRATORY: Clear to auscultation bilaterally, no rales, rhonchi or wheezing. CVS: Regular rate and rhythm, no rubs, murmurs, or gallops. Patient has sternal surgical scar. This appears to be healing well. There is no redness or erythema. ABDOMEN: Soft, nontender, nondistended, no organomegaly. BACK: Normal to inspection, no CVA tenderness. SKIN: Normal color, no rash, warm, dry. No pallor. EXTREMITIES: No pedal edema, no calf tenderness, no Homans sign or cords, no joint swelling. NEURO/PSYCH: Alert and oriented x3, normal mood and affect, normal motor sensory exam. No obvious cranial nerve deficit. Constitutional: Initial Vital Signs Temperature (C) 36.3 C 03/05/17 09:42 Heart Rate 64 03/05/17 09:42 Respiratory Rate 16 03/05/17 09:42 Blood Pressure 118/57 L 03/05/17 09:42 O2 Sat (%) 97 03/05/17 09:42 O2 Delivery Mode Room Air Allergies/Adverse Reactions: No Known Allergies Allergy (Unverified 02/13/17 16:22) Home Medications: Medication Instructions Recorded Aspirin [Aspirin 81mg (*)] 81 mg PO HS 02/13/17 B12/Levomefolate Calcium/B-6 1 each PO DAILY 02/13/17 [Foltx Tablet] LORazepam [Ativan (*)] 1 mg PO HS PRN 02/13/17 Levothyroxine [Synthroid 100 mcg 100 mcg PO DAILY 02/13/17 (*)] Meclizine HCl [Meclizine HCl 12.5 25 mg PO DAILY PRN 02/13/17 mg (*)] Niacin ER [Niaspan 1000 mg (*)] 2,000 mg PO HS 02/13/17 Nitroglycerin [Nitrostat 0.4 mg 0.4 mg SL AD PRN 02/13/17 (*)] Simvastatin [Zocor] 20 mg PO HS 02/13/17 Vit C/Dl-E AC/Lut/Copper/Znox 1 each PO BID 02/13/17 [Preservision Softgel] Acetaminophen [Tylenol 325mg (*)] 325 - 650 mg PO Q4HRS PRN #0 tab 02/27/17 Apixaban [Eliquis] 2.5 mg PO BID #60 tab 02/27/17 Cetirizine [ZyrTEC 10 mg (*)] 10 mg PO DAILY PRN #30 tab 02/27/17 Diltiazem Xr [Dilacor Xr] 240 mg PO DAILY #30 cap 02/27/17 Losartan Potassium [Cozaar] 100 mg PO HS #0 02/27/17 Metoprolol Tartrate [Lopressor 50 50 mg PO BID #60 tab 02/27/17 mg (*)] Torsemide [Demadex] 20 mg PO DAILY AT 10AM #30 tab 02/27/17 traMADol [Ultram 50 mg (*)] 50 mg PO Q8HRS PRN #30 tab 02/27/17 Medical Decision Making - Diagnostics EKG Interpretation: EKG shows normal sinus rhythm, normal rate, normal axis, normal intervals. Flipped T-waves V3 through V6 Imaging Results: Imaging Impressions Chest X-Ray 03/05/17 09:51 Impression: Postoperative changes following CABG with borderline-cardiomegaly and bibasilar pleuroparenchymal consolidation, increasing on the left compared to 03/03/2017. ED Course/Re-evaluation: In the emergency department I met EMS on arrival. I took report from the hatchery helper. I reviewed the patient's documentation from [facility]. I discussed the plan with the patient. I answered all her questions. Laboratory studies, EKG, chest x-ray were obtained. Reviewed the patient's laboratory studies. Of note her CBC, chemistry and troponin were normal. BNP was elevated. I discussed the results with the patient. I answered all her questions. I consulted with Dr. Neves from Cardiology. Dr. Santos's pa came to the ER and evaluated the patient. I discussed the case with Dr. Santos. He recommended discharge home. I discussed the plan with the patient. I answered all her questions. She was given warnings prior to leaving. She will return with worsening symptoms. Differential Diagnosis: My differential includes but is not limited to hypotension, bacteremia, sepsis, ACS, acute HI, dysrhythmia, dissection, aneurysm, tamponade, PE, pneumonia - Data Points Laboratory Results: Laboratory Results 03/05/17 09:30 03/05/17 09:30 03/05/17 03/05/17 09:30 09:30 WBC 8.72 10^3/uL 10^3/uL (3.80-9.50) RBC 4.32 10^6/uL 10^6/uL (4.18-5.33) Hgb 13.8 g/dL g/dL (12.6-16.3) Hct 41.1 % % (38.0-47.0) MCV 95.1 fL fL (81.5-99.8) MCH 31.9 pg pg (27.9-34.1) MCHC 33.6 g/dL g/dL (32.4-36.7) RDW 17.8 % H % (11.5-15.2) Plt Count 406 10^3/uL H 10^3/uL (150-400) MPV 10.3 fL fL (8.7-11.7) Neut % (Auto) 70.6 % % (39.3-74.2) Lymph % (Auto) 12.5 % L % (15.0-45.0) Schley % (Auto) 14.0 % H % (4.5-13.0) Eos % (Auto) 1.7 % % (0.6-7.6) Baso % (Auto) 0.9 % % (0.3-1.7) Nucleat RBC Rel Count 0.0 % % (0.0-0.2) Absolute Neuts (auto) 6.15 10^3/uL 10^3/uL (1.70-6.50) Absolute Lymphs (auto) 1.09 10^3/uL 10^3/uL (1.00-3.00) Absolute Monos (auto) 1.22 10^3/uL H 10^3/uL (0.30-0.80) Absolute Eos (auto) 0.15 10^3/uL 10^3/uL (0.03-0.40) Absolute Basos (auto) 0.08 10^3/uL 10^3/uL (0.02-0.10) Absolute Nucleated RBC 0.00 10^3/uL 10^3/uL (0-0.01) Immature Gran % 0.3 % % (0.0-1.1) Immature Gran # 0.03 10^3/uL 10^3/uL (0.00-0.10) Sodium 136 mEq/L mEq/L (134-144) Potassium 3.8 mEq/L mEq/L (3.5-5.2) Chloride 99 mEq/L mEq/L (97-110) Carbon Dioxide 22 mEq/l mEq/l (22-31) Anion Gap 15 mEq/L mEq/L (8-16) BUN 21 mg/dL mg/dL (7-23) Creatinine 1.5 mg/dL H mg/dL (0.6-1.0) Estimated GFR 34 Glucose 97 mg/dL mg/dL (70-100) Calcium 9.1 mg/dL mg/dL (8.5-10.4) Troponin I 0.034 ng/mL ng/mL (0-0.034) NT-Pro-B Natriuret Pep 2270 pg/mL H pg/mL (0-450) Medications Given: Discontinued Medications Aspirin (Aspirin) 324 mg PO EDNOW ONE Stop: 03/05/17 09:52 Last Admin: 03/05/17 10:01 Dose: 324 mg Sodium Chloride (Ns) 500 mls @ 0 mls/hr IV ONCE ONE PRN Reason: As Directed Stop: 03/05/17 09:52 Last Admin: 03/05/17 10:01 Dose: 500 mls Departure - Departure Disposition: Home, Routine, Self-Care Clinical Impression: Lightheaded, Dizziness Condition: Good Instructions: Lightheadedness (ED), Dizziness (ED) Additional Instructions: Return with increasing weakness, dizziness, lightheadedness, chest pain, shortness of breath or any other concerns. Referrals: Karlos Arredondo MD [Medical Doctor] - 5-7 days, call for appt.
[2017-03-05] MEDS ORDERED: NS 500 ML IV ONE (09:51)
[2017-03-05] MEDS ORDERED: ASPIRIN 81 MG CHEWABLE TAB PO ONE (09:51)
[2017-03-05 09:55] LABS: % IMMATURE GRANULYOCYTES 0.3 % (0.0-1.1); ABSOLUTE IMMATURE GRANULOCYTES 0.03 10^3/uL (0.00-0.10); ADD DIFF? NO; ADD MORPH? NO; ADD SCAN? NO; ATYPICAL LYMPHOCYTE FLAG 0 (0-99); FRAGMENT RBC FLAG 0 (0-99); HEMATOCRIT 41.1 % (38.0-47.0); HEMOGLOBIN 13.8 g/dL (12.6-16.3); LEFT SHIFT FLG 10 (0-99); LIPEMIA HEMOLYSIS FLAG 80 (0-99); MEAN CELL HEMOGLOBIN 31.9 pg (27.9-34.1); MEAN CELL HEMOGLOBIN CONCENTR. 33.6 g/dL (32.4-36.7); MEAN CELL VOLUME 95.1 fL (81.5-99.8); MEAN PLATELET VOLUME 10.3 fL (8.7-11.7); PLATELET CLUMPS FLAG 20 (0-99); PLATELET COUNT 406 10^3/uL (150-400); RED BLOOD CELL COUNT 4.32 10^6/uL (4.18-5.33); RED CELL DISTRIBUTION WIDTH 17.8 % (11.5-15.2)
--- NOTE | 2017-03-05 09:59 | CPEKG ---
Heart Rate: 68 RR Interval: 882 P-R Interval: 140 QRSD Interval: 82 QT Interval: 448 QTC Interval: 477 P [place]: 9 QRS [place]: 49 T Wave [place]: 237 EKG Severity - ABNORMAL ECG - EKG Impression: SINUS RHYTHM EKG Impression: NONSPECIFIC T ABNORMALITIES, DIFFUSE LEADS Electronically Signed By: Naila Bryant 05-Mar-2017 15:22:39
[2017-03-05 10:14] LABS: ANION GAP 15 mEq/L (8-16); CALCIUM 9.1 mg/dL (8.5-10.4); CARBON DIOXIDE 22 mEq/l (22-31); CHLORIDE 99 mEq/L (97-110); CREATININE 1.5 mg/dL (0.6-1.0); GLOMERULAR FILTRATION RATE 34; GLUCOSE 97 mg/dL (70-100); POTASSIUM 3.8 mEq/L (3.5-5.2); SODIUM 136 mEq/L (134-144)
[2017-03-05 10:25] LABS: TROPONIN I 0.034 ng/mL (0-0.034)
[2017-03-05 13:23] VITALS: BP 118/79; PULSE 70; RESP 14; TEMP 97.9; O2SAT 94
== END 2017-03-05 13:22 | disposition home or self-care (01) ==
LOC: EDUNIT#
DX: R42 Dizziness and giddiness (principal); I50.9 Heart failure, unspecified; I10 Essential (primary) hypertension; I25.810 Atherosclerosis of coronary artery bypass graft(s) without angina pectoris; Z79.82 Long term (current) use of aspirin

== ENCOUNTER → 2017-03-07 | Outpatient (CLI) | payer OTHER | LOC: FLAB 13:31 | PROVIDERS: ATTEND Thoracic Surgery (Cardiothoracic Vascular Surgery) | DX: I25.10 Atherosclerotic heart disease of native coronary artery without angina pectoris (principal); Z95.1 Presence of aortocoronary bypass graft; J90 Pleural effusion, not elsewhere classified; J98.11 Atelectasis ==

== ENCOUNTER → 2017-03-30 | Outpatient (CLI) | payer OTHER | LOC: BHLMT 13:00 | PROVIDERS: ATTEND Internal Medicine Cardiovascular Disease | DX: I25.10 Atherosclerotic heart disease of native coronary artery without angina pectoris (principal); I10 Essential (primary) hypertension; E03.9 Hypothyroidism, unspecified; E78.00 Pure hypercholesterolemia, unspecified; I48.0 Paroxysmal atrial fibrillation; R53.83 Other fatigue; Z95.1 Presence of aortocoronary bypass graft | CPT/HCPCS: 93005-PO ==

== ENCOUNTER → 2018-03-23 | Outpatient (CLI) | payer OTHER | LOC: FIMAGING 10:25 | PROVIDERS: ATTEND Psychiatry & Neurology Neurology | DX: M48.02 Spinal stenosis, cervical region (principal); M50.30 Other cervical disc degeneration, unspecified cervical region; M25.78 Osteophyte, vertebrae; M79.641 Pain in right hand; R20.9 Unspecified disturbances of skin sensation ==